=== PATIENT | female | born 1960 | race Caucasian/White ===

== ENCOUNTER 2018-11-15 14:34 | Inpatient (IN) | payer MEDICARE, MEDICAID ==
[2018-11-15 14:58] LABS: % BASOPHILS 4.9 % (0.0-2.0); % EOSINOPHILS 1.2 % (0.0-5.0); % LYMPHOCYTES 41.4 % (20.0-50.0); % MONOCYTES 6.5 % (2.0-10.0); BASOPHILE ABSOLUTE 0.3 Th/cumm (0-0.2); EOSINOPHILE ABSOLUTE 0.1 Th/cmm (0.1-0.4); HEMOGLOBIN 15.9 gm/dL (12-16); LYMPHOCYTE ABSOLUTE 2.3 Th/cmm (1.5-3.0); MEAN CELL VOLUME 95.9 fl (81-100); MEAN CORPUSCULAR HEMOGLOBIN 32.5 pg (27.0-31.0); MEAN CORPUSCULAR HGB CONC 33.9 pg (28.0-36.0); MONOCYTE ABSOLUTE 0.4 Th/cmm (0.3-1.0); NEUTROPHILE ABSOLUTE 2.4 Th/cmm (1.8-8.0); PLATELET COUNT 281 Th/cmm (150-400); WHITE BLOOD COUNT 5.5 Th/cmm (4.8-10.8)
[2018-11-15 15:15] LABS: ALB/GLOB RATIO 2.2 (1.0-1.8); ALBUMIN 4.4 gm/dL (3.7-5.3); ALKALINE PHOSPHATASE 40 U/L (34-104); ANION GAP 11.6 (7.0-16.0); BILIRUBIN,TOTAL 0.5 mg/dL (0.3-1.0); BUN - UREA NITROGEN 7 mg/dL (7-25); CALCIUM SERUM 9.6 mg/dL (8.6-10.3); CARBON DIOXIDE 25.9 mEq/L (21.0-31.0); CHLORIDE 105 mEq/L (98-107); CHOLESTEROL 194 mg/dL (<200); CREATININE - SERUM 0.7 mg/dL (0.6-1.2); GFR AFRICAN-AMERICAN > 60.0 ml/min (>90); GFR NON AFRICAN-AMERICAN > 60.0 ml/min; GLUCOSE 131 mg/dL (70-105); HDL -HIGH DENSITY LIPOPROTEIN 62 mg/dL (23-92); POTASSIUM SERUM 3.5 mEq/L (3.5-5.1); SGOT 15 U/L (13-39); SGPT/ALT 11 U/L (7-52); SODIUM SERUM 139 mEq/L (136-145); TOTAL PROTEIN,SERUM 6.4 gm/dL (6.0-8.3); TRIGLYCERIDES 90 mg/dL (<150)
[2018-11-15 15:19] LABS: ACETAMINOPHEN < 10.0 ug/mL (10.0-30.0)
--- NOTE | 2018-11-15 17:35 | ED Physician Chart ---
ED Chief Complaint/HPI - Patient Information Date Seen:: 11/15/18 Time Seen:: 14:35 Chief Complaint:: Hallucinations History of Present Illness:: onset x 2 days of hallucinations and delusions; no report of trauma, SIs, H/As, S/T, neck pain, cough, C/P, SOB, Abd. Pain, A/N/V/D/C, fever, chills, or urinary s/s Allergies:: Allergies Allergy/AdvReac Type Severity Reaction Status Date / Time No Known Allergies Allergy Verified 11/15/18 14:38 Vitals:: Vital Signs - 8 hr 11/15/18 14:38 Temp 98.8 F HR 109 RR 16 BP 117/85 O2 Sat % 98 Historian:: Patient, EMS Review:: Nurse's Note Reviewed, Old Chart Reviewed, EMS run form Reviewed ED Review of Systems - Review of Systems General/Constitutional: No fever, No chills, No weight loss, No weakness, No diaphoresis, No edema, No loss of appetite Skin: No skin lesions, No rash, No bruising Head: No headache, No light-headedness Eyes: No loss of vision, No pain, No diplopia ENT: No earache, No nasal drainage, No sore throat, No tinnitus Neck: No neck pain, No swelling, No thyromegaly, No stiffness, No mass noted Cardio Vascular: No chest pain, No palpitations, No PND, No orthopnea, No edema Pulmonary: No SOB, No cough, No sputum, No wheezing GI: No nausea, No vomiting, No diarrhea, No pain, No melena, No hematochezia, No constipation, No hematemesis G/U: No dysuria, No frequency, No hematuria, No nacturia Personal Security Specialist: No vaginal discharge, No abnormal vaginal bleed, No contraction Musculoskeletal: No bone or joint pain, No back pain, No muscle pain Endocrine: No polyuria, No polydipsia Psychiatric: Prior psych history, Depression, Anxiety, No suicidal ideation, No homicidal ideation, Auditory hallucination, Visual hallucination Hematopoietic: No bruising, No lymphadenopathy Allergic/Immuno: No urticaria, No angioedema Neurological: No syncope, No focal symptoms, No weakness, No paresthesia, No headache, No seizure, No dizziness, No confusion, No vertigo ED Past Medical History - Past Medical History Obtainable: Yes Past Medical History: PUD/GERD Family History: None Social History: Non Smoker, No Alcohol, No Drug Use, Single, Care Facility Surgical History: None Psychiatricy History: Depression, Schizophrenia, Bipolar Medication: Reviewed Family Medical History - Family Member Mother History Unknown: Yes ED Physical Exam - Physical Examination General/Constitutional: Awake, Well-developed, well-nourished, Alert, No distress, GCS 15, Non-toxic appearing, Ambulatory Head: Atraumatic Eyes: Lids, conjuctiva normal, PERRL, EOMI Skin: Nl inspection, No rash, No skin lesions, No ecchymosis, Well hydrated, No lymphadenopathy ENMT: External ears, nose nl, TM canals nl, Nasal exam nl, Lips, teeth, gums nl , Oropharynx nl, Tonsils nl Neck: Nontender, Full ROM w/o pain, No JVD, No nuchal rigidity, No bruit, No mass, No stridor Respiratory: Nl effort/Exclusion, Clear to Auscultation, No Wheeze/Rhonchi/Rales Cardio Vascular: RRR, No murmur, gallop, rubs, NL S1 S2, Carotid/Femoral/Distal pulses equal bilaterally GI: No tenderness/rebounding/guarding, No organomegaly, No hernia, Normal BS's, Nondistended, No mass/bruits, No McBurney tenderness : No CVA tenderness Extremities: No tenderness or effusion, Full ROM, normal strength in all extremities, No edema, Normal digits & nails Neuro/Psych: Alert/oriented, DTR's symmetric, Normal sensory exam, Normal motor strength, Judgement/insight normal, Mood normal, Normal gait, No focal deficits Other Neuro/Psych comments:: MSE: + Hallucinations and Delusions; no SIs; Mood/Affect: Blunt Misc: Normal back, No paraspinal tenderness ED Labs/Radiology/EKG Results - Lab Results Results: Laboratory Tests 11/15/18 11/15/18 11/15/18 14:46 14:46 14:46 WBC 5.5 RBC 4.90 Hgb 15.9 Hct 47.0 MCV 95.9 MCH 32.5 H MCHC Differential 33.9 RDW 12.0 Plt Count 281 MPV 8.1 Neutrophils % 46.0 Lymphocytes % 41.4 Monocytes % 6.5 Eosinophils % 1.2 Basophils % 4.9 H Sodium 139 Potassium 3.5 Chloride 105 Carbon Dioxide 25.9 Anion Gap 11.6 BUN 7 Creatinine 0.7 Est GFR ( Amer) > 60.0 Est GFR (Non-Af Amer) > 60.0 BUN/Creatinine Ratio 10.0 Glucose 131 H Calcium 9.6 Total Bilirubin 0.5 AST 15 ALT 11 Alkaline Phosphatase 40 Troponin I Total Protein 6.4 Albumin 4.4 Globulin 2.0 Albumin/Globulin Ratio 2.2 H Triglycerides 90 Cholesterol 194 LDL Cholesterol Direct 115 HDL Cholesterol 62 TSH 1.07 Serum , Qual Salicylates < 25.0 L Acetaminophen < 10.0 L Ethyl Alcohol < 10 11/15/18 11/15/18 14:46 14:46 WBC RBC Hgb Hct MCV MCH MCHC Differential RDW Plt Count MPV Neutrophils % Lymphocytes % Monocytes % Eosinophils % Basophils % Sodium Potassium Chloride Carbon Dioxide Anion Gap BUN Creatinine Est GFR ( Amer) Est GFR (Non-Af Amer) BUN/Creatinine Ratio Glucose Calcium Total Bilirubin AST ALT Alkaline Phosphatase Troponin I 0.01 Total Protein Albumin Globulin Albumin/Globulin Ratio Triglycerides Cholesterol LDL Cholesterol Direct HDL Cholesterol TSH Serum , Qual NEGATIVE Salicylates Acetaminophen Ethyl Alcohol Comments:: Reviewed - EKG Interpretations EKG Time:: 14:50 Rate & Rhythm: 90; NSR Comments:: non-specific st-t changes ED Septic Shock - . Is Septic Shock (SBP<90, OR Lactate>4 mmol\L) present?: No - <6hrs of presentation: Vital Signs: Vital Signs - 8 hr 11/15/18 14:38 Temp 98.8 F HR 109 RR 16 BP 117/85 O2 Sat % 98 ED Reassessment (Disposition) - Reassessment Reassessment Condition:: Improved - Diagnosis Diagnosis:: Hallucinations; Delusions; Medical Clearance; Psychosis; Schizophrenia - Aftercare/Follow up Instructions Aftercare/Follow-Up Instructions:: Counseled pt regarding lab results/diagnosis & need follow up, Counseled pt & family regarding lab results/diagnosis & need follow up - Patient Disposition Discharge/Transfer:: Acute Care w/in this hosp Admitted to:: [facility] Condition at Disposition:: Stable, Improved
[2018-11-15] MEDS ORDERED: Maalox 30 mL Cup PO PRN (18:30)
[2018-11-15] MEDS ORDERED: Magnesium Hydroxide (MOM) 30 mL UDC PO PRN ×2 (18:30→18:38)
[2018-11-15] MEDS ORDERED: Non-Formulary Item 1 EA (Acetaminophen [Acetaminophen Er] 650 MG) PO PRN (18:38)
[2018-11-15 20:04] VITALS: BP 102/45
[2018-11-16] MEDS: Multivitamin Tab PO SCH (09:00)
--- NOTE | 2018-11-16 10:30 | Psychiatric Evaluation ---
DATE OF SERVICE: 11/15/2018 PSYCHIATRIC EVALUATION Staff was spoken to. The patient is interviewed and chart is reviewed. REASON FOR ADMISSION AND HISTORY OF PRESENT ILLNESS: The patient is reported to have been actively psychotic and has been talking to self, not making any sense and getting acutely delusional and hence the patient could not be contained at a lower level of care and the patient has been referred over here for stabilization. Sleep and appetite prior to the hospitalization are reported to be poor. The patient is reporting that her doctor has taken her off of all the medications. There is no reason for her to be on any medication. PAST PSYCHIATRIC HISTORY: The patient is reported to have been diagnosed to have schizophrenia, chronic paranoid type and the patient is conserved. The patient's brother is a conservator. SUBSTANCE ABUSE HISTORY: None. PHYSICAL OR SEXUAL ABUSE HISTORY: None. LEGAL PROBLEMS: None at this time. SOCIAL HISTORY: The patient is a resident of the [facility] in [place]. PHYSICAL OR SEXUAL ABUSE HISTORY: None. MENTAL STATUS EXAMINATION: The patient is a 58-year-old woman looking her stated age, superficially cooperative. Eye contact is fair. Mood is irritable. Affect is constricted. The patient is operating on denial. The patient is stating that she is cured. She does not need to be on any medication and she states that her brother is a conservator and they have been waiting for her to come home. The patient is going on a tangent and is not able to provide much of information. The patient is very guarded and is denying any command hallucinations at this time, but contrary to what has been written at the time of the admission. The patient is alert and aware that she is in the hospital. Attention span and concentration are noted to be fair. The patient is of average intelligence. Short and long-term memory are noted to be intact. DIAGNOSTIC IMPRESSION: AXIS I: Schizophrenia, chronic paranoid type with acute exacerbation. AXIS II: None. AXIS III: As per Dr. Hernandez. IMMEDIATE TREATMENT PLAN: The patient is going to be observed on the inpatient unit, provided with supportive psychotherapy. The patient is going to be closely monitored. Once stabilized, the patient is going to be discharged to [facility] to be followed up on an outpatient basis. [facility]# [id number]
[2018-11-16] MEDS ORDERED: Ipratropium Neb 0.5 mg/2.5 mL UD IH PRN (12:04)
[2018-11-16] MEDS ORDERED: Albuterol Nebulizer 2.5mg/3mL HHN PRN (12:04)
--- NOTE | 2018-11-16 14:42 | History & Physical ---
ADMIT DATE: 11/15/2018 CHIEF COMPLAINT: Agitated, hallucinating. HISTORY OF PRESENT ILLNESS: This is a 58-year-old female with history of GERD, COPD, nicotine dependency, admitted from nursing facility with the above complaints ____. The patient denies chest pain, shortness of breath. PAST MEDICAL HISTORY: As mentioned in the history of present illness. PAST SURGICAL HISTORY: Denies surgeries. ALLERGIES: No known drug allergies. MEDICATIONS: The patient was placed on Colace, Tylenol, psychotropic medications and Zyprexa. FAMILY HISTORY: Noncontributory. SOCIAL HISTORY: Smokes a pack per day, drinks occasionally. No intravenous drug use. 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 REVIEW OF SYSTEMS: GENERAL: Complains of not feeling well. HEENT: No blurred vision or pain. LUNGS: Asthma. The patient with possible chronic obstructive pulmonary disease. HEART: Denies hypertension or coronary artery disease. ABDOMEN: No nausea, vomiting, pain. History of acid reflux. GENITOURINARY: The patient denies increased frequency or dysuria. NEUROLOGIC: No headache, seizure or syncope. PSYCHIATRIC: Stable. PHYSICAL EXAMINATION: VITAL SIGNS: Blood pressure 103/45, respirations 20, pulse 87, temperature 98.1. GENERAL: Elderly female, appears older. NECK: Supple. No mass. LUNGS: Equal breath sounds with few rhonchi. HEART: Regular rate and rhythm without appreciable murmur. ABDOMEN: Soft, globular. EXTREMITIES: Positive excoriation. NEUROLOGIC: Limited. LABORATORY DATA: WBC 5, hemoglobin 15, platelets 281. Sodium 139, potassium 3.5, BUN 7, creatinine 0.7, blood sugar 131. Albumin 4.4. ASSESSMENT AND PLAN: Hyperglycemia, COPD, GERD, psych disorder. We will provide the patient with bronchodilator and ____ blood sugar closely. We will provide the patient with a proton pump inhibitor. We will continue monitoring the patient closely with oscar, Dr. Dillon. JOB# [id number]
--- NOTE | 2018-11-16 22:44 | Consultation ---
DATE OF CONSULTATION: 11/16/2018 REFERRING PHYSICIAN: Laurence Posada MD TYPE OF CONSULTATION: Psychology. HISTORY OF PRESENT ILLNESS: The patient is a 58-year-old female. The patient is a resident of [facility]. The following is by record review and by the patient's self-report. According to record review, the patient has a long history of schizophrenia. Staff at her facility reports the patient had been talking to herself, not making much sense and could not be contained at a lower level of care. Therefore, the patient was sent here for stabilization. Upon interview, the patient states that she does not need to take any medication. Staff reports the patient had been refusing her medications recently. PAST MEDICAL HISTORY: Please see history and physical by Dr. Hernandez. PAST PSYCHIATRIC HISTORY: Review of the record indicates the patient has a history of schizophrenia, chronic paranoid type and is also conserved. The patient's brother is her conservator. The patient has had multiple previous psychiatric hospitalizations in the past. The patient is under the care of a psychiatrist and psychologist at her placement. PSYCHOSOCIAL HISTORY: The patient is conserved. The patient did not answer questions about occupational or educational history. The patient stated that her brother, Ronny, is involved in her care as well as her mother, Linda. The patient did not state any specific faith affiliation. The patient did not answer questions about experiencing any history of physical or sexual abuse or any current legal problems. SUBSTANCE ABUSE HISTORY: The patient denied any history of alcohol, tobacco or illicit drug use. MENTAL STATUS EXAMINATION: The patient appears to be her stated age. The patient's attitude is superficially cooperative. Eye contact is fair. Speech is pressured and she is talking to self.Mood is irritable. Affect is constricted. Thought process shows loose associations and is markedly tangential with poor cognitive redirectability. The patient is distractible. The patient denied any auditory or visual hallucinations. Paranoid ideation is present and needs further evaluation. The patient is stating that she does not need to take medication. Impulse control is poor. Concentration is fair. The patient was able to sustain focus. The patient participated in the memory assessment. Short term and long-term memory seemed to be grossly intact. Sensorium is alert and oriented to self and place. The patient is aware she is in the hospital. The patient did not participate in the interpretation of proverbs. Insight is poor. Judgment is compromised. DIAGNOSTIC IMPRESSION: AXIS I: History of schizophrenia, chronic paranoid type with acute exacerbation. AXIS II: Deferred. AXIS III: Per Dr. Hernandez. TREATMENT PLAN: The patient has been seen by Dr. Posada for psychiatric evaluation and for the management of the patient's psychotropic medications. We will provide supportive psychotherapy to include reality orientation, differentiation and integration. We will provide de-escalation with cognitive and behavioral redirection. We will provide coping strategies for chronic severe mental illness. We will provide motivational enhancement for the patient to become compliant and stay compliant with all aspects of her care and treatment and more specifically the patient's medication regimen. We will follow up in 2 days to continue the present treatment. Thank you, Dr. Posada for this consult and the opportunity to participate in this patient's care. [facility]# [id number] [email or web address]
--- NOTE | 2018-11-17 03:17 | Progress Notes ---
DATE: 11/16/2018 SUBJECTIVE: Staff was spoken to. The patient is interviewed. Mood is noted to be less irritable. Affect is appropriate. The patient has been having difficult time to cope with the stress and is stating that she should not be on any medications. The patient is stating that doctor has decided to take her off of all the medication. The patient is still very paranoid, but denies any command hallucinations today. ASSESSMENT: The patient is still psychotic. PLAN: To continue the patient with the supportive therapy and followup. JOB# [id number]
[2018-11-17 07:06] LABS: A1C 5.3 % (4.8-5.6)
[2018-11-17] MEDS: Multivitamin Tab PO SCH (08:20)
--- NOTE | 2018-11-17 12:43 | Progress Notes ---
DATE: 11/17/2018 SUBJECTIVE: Staff was spoken to. The patient is interviewed. Mood is noted to be irritable. Affect is constricted. The patient is stating that she is cured off all the mental illness and her doctor has taken her off of the medication. She should not be on any medications. The patient has not been presenting with any major problems at this time, but continues to be responding to internal stimuli and very paranoid. PLAN: To increase the dose on the Zyprexa to 5 mg and follow the patient up. JOB# [id number]
--- NOTE | 2018-11-17 13:07 | Internal Medicine Prog Note ---
Internal Medicine Subjective - Subjective Patient seen and examined:: with staff, chart reviewed Patient is:: awake, verbal, interactive, talking, denies any new complaints Per staff patient has:: no adverse event, no episodes of fall, poor appetite, tolerating meds Internal Medicine Objective - Results Result Diagrams: 11/15/18 14:46 11/15/18 14:46 Recent Labs: Laboratory Last Values WBC 5.5 Th/cmm (4.8-10.8) 11/15/18 14:46 RBC 4.90 Mil/cmm (3.80-5.10) 11/15/18 14:46 Hgb 15.9 gm/dL (12-16) 11/15/18 14:46 Hct 47.0 % (41.0-60) 11/15/18 14:46 MCV 95.9 fl (81-100) 11/15/18 14:46 MCH 32.5 pg (27.0-31.0) H 11/15/18 14:46 MCHC Differential 33.9 pg (28.0-36.0) 11/15/18 14:46 RDW 12.0 % (11.5-20.0) 11/15/18 14:46 Plt Count 281 Th/cmm (150-400) 11/15/18 14:46 MPV 8.1 fl 11/15/18 14:46 Neutrophils % 46.0 % (40.0-80.0) 11/15/18 14:46 Lymphocytes % 41.4 % (20.0-50.0) 11/15/18 14:46 Monocytes % 6.5 % (2.0-10.0) 11/15/18 14:46 Eosinophils % 1.2 % (0.0-5.0) 11/15/18 14:46 Basophils % 4.9 % (0.0-2.0) H 11/15/18 14:46 Sodium 139 mEq/L (136-145) 11/15/18 14:46 Potassium 3.5 mEq/L (3.5-5.1) 11/15/18 14:46 Chloride 105 mEq/L (98-107) 11/15/18 14:46 Carbon Dioxide 25.9 mEq/L (21.0-31.0) 11/15/18 14:46 Anion Gap 11.6 (7.0-16.0) 11/15/18 14:46 BUN 7 mg/dL (7-25) 11/15/18 14:46 Creatinine 0.7 mg/dL (0.6-1.2) 11/15/18 14:46 Est GFR ( Amer) > 60.0 ml/min (>90) 11/15/18 14:46 Est GFR (Non-Af Amer) > 60.0 ml/min 11/15/18 14:46 BUN/Creatinine Ratio 10.0 11/15/18 14:46 Glucose 131 mg/dL (70-105) H 11/15/18 14:46 Calcium 9.6 mg/dL (8.6-10.3) 11/15/18 14:46 Total Bilirubin 0.5 mg/dL (0.3-1.0) 11/15/18 14:46 AST 15 U/L (13-39) 11/15/18 14:46 ALT 11 U/L (7-52) 11/15/18 14:46 Alkaline Phosphatase 40 U/L (34-104) 11/15/18 14:46 Troponin I 0.01 ng/mL (0.01-0.05) 11/15/18 14:46 Total Protein 6.4 gm/dL (6.0-8.3) 11/15/18 14:46 Albumin 4.4 gm/dL (3.7-5.3) 11/15/18 14:46 Globulin 2.0 gm/dL 11/15/18 14:46 Albumin/Globulin Ratio 2.2 (1.0-1.8) H 11/15/18 14:46 Triglycerides 90 mg/dL (<150) 11/15/18 14:46 Cholesterol 194 mg/dL (<200) 11/15/18 14:46 LDL Cholesterol Direct 115 mg/dL (75-193) 11/15/18 14:46 HDL Cholesterol 62 mg/dL (23-92) 11/15/18 14:46 TSH 1.07 uIU/ml (0.34-5.60) 11/15/18 14:46 Serum , Qual NEGATIVE (NEGATIVE) 11/15/18 14:46 Salicylates < 25.0 mg/L (30.0-100.0) L 11/15/18 14:46 Acetaminophen < 10.0 ug/mL (10.0-30.0) L 11/15/18 14:46 Ethyl Alcohol < 10 mg/dL (0-10) 11/15/18 14:46 - Physical Exam Vitals and I&O: Vital Signs Temp 98.6 F 11/17/18 06:24 Pulse 70 11/17/18 07:27 Resp 18 11/17/18 07:27 BP 108/66 11/17/18 06:24 Pulse Ox 97 11/17/18 07:27 Intake & Output 11/16/18 11/17/18 11/17/18 18:59 06:59 18:59 Intake Total 1100 240 Balance 1100 240 Intake: Oral 740 240 Other 360 Other: # Voids 3 3 # Bowel Movements 0 0 Active Medications: Current Medications Acetaminophen (Tylenol) 650 mg PO Q4HR PRN PRN Reason: Mild Pain / Temp above 100 Stop: 01/14/19 18:29 Al Hydrox/Mg Hydrox/Simethicone (Maalox) 30 ml PO Q4HR PRN PRN Reason: GI DISTRESS Stop: 01/14/19 18:29 Albuterol Sulfate (Albuterol 2.5mg/3ml Neb Ud) 2.5 mg HHN Q2HRT PRN PRN Reason: Shortness of Breath or Wheeze Stop: 01/15/19 12:03 Docusate Sodium (Colace) 100 mg PO BID ASH Stop: 01/15/19 08:59 Last Admin: 11/17/18 08:20 Dose: 100 mg Ipratropium [place] (Atrovent Neb 0.5mg/2.5ml) 0.5 mg IH Q2HRT PRN PRN Reason: Shortness of Breath or Wheeze Stop: 01/15/19 12:03 Lorazepam (Ativan) 0.5 mg PO Q6HR PRN; Protocol PRN Reason: Anxiety Stop: 01/14/19 19:31 Last Admin: 11/16/18 16:48 Dose: 0.5 mg Magnesium Hydroxide (Milk Of Magnesia) 30 ml PO HS PRN PRN Reason: Constipation Magnesium Hydroxide (Milk Of Magnesia) 30 ml PO DAILY PRN PRN Reason: Constipation Stop: 01/14/19 18:37 Multivitamins/Vitamin C (Theragran) 1 tab PO DAILY ASH Stop: 01/15/19 08:59 Last Admin: 11/17/18 08:20 Dose: 1 tab Olanzapine (Zyprexa) 5 mg PO HS ASH; Protocol Stop: 01/16/19 20:59 Zolpidem Tartrate (Ambien) 5 mg PO HS PRN PRN Reason: Insomnia Stop: 01/14/19 18:29 Last Admin: 11/16/18 20:36 Dose: 5 mg General: alert, thin HEENT: NC/AT, PERRLA, EOMI Neck: Supple, No JVD Lungs: CTAB Cardiovascular: RRR, Normal S1, Normal S2, without murmur Abdomen: soft, non-tender, thin, positive bowel sound Extremities: excoriation Neurological: no change Internal Medicine Assmt/Plan - Assessment Assessment: ASSESSMENT AND PLAN: Hyperglycemia, COPD, GERD, psych disorder. - Plan Plan: PLAN: We will provide the patient with bronchodilator and _monitor___ blood sugar closely. We will provide the patient with a proton pump inhibitor. We will continue monitoring the patient closely with Dr. Santana moore.
[2018-11-18] MEDS: Multivitamin Tab PO SCH (08:35)
--- NOTE | 2018-11-18 13:27 | Internal Medicine Prog Note ---
Internal Medicine Subjective - Subjective Patient seen and examined:: with staff, chart reviewed Patient is:: awake, verbal, interactive, talking, denies any new complaints Per staff patient has:: no adverse event, no episodes of fall, poor appetite, tolerating meds Internal Medicine Objective - Results Result Diagrams: 11/15/18 14:46 11/15/18 14:46 Recent Labs: Laboratory Last Values WBC 5.5 Th/cmm (4.8-10.8) 11/15/18 14:46 RBC 4.90 Mil/cmm (3.80-5.10) 11/15/18 14:46 Hgb 15.9 gm/dL (12-16) 11/15/18 14:46 Hct 47.0 % (41.0-60) 11/15/18 14:46 MCV 95.9 fl (81-100) 11/15/18 14:46 MCH 32.5 pg (27.0-31.0) H 11/15/18 14:46 MCHC Differential 33.9 pg (28.0-36.0) 11/15/18 14:46 RDW 12.0 % (11.5-20.0) 11/15/18 14:46 Plt Count 281 Th/cmm (150-400) 11/15/18 14:46 MPV 8.1 fl 11/15/18 14:46 Neutrophils % 46.0 % (40.0-80.0) 11/15/18 14:46 Lymphocytes % 41.4 % (20.0-50.0) 11/15/18 14:46 Monocytes % 6.5 % (2.0-10.0) 11/15/18 14:46 Eosinophils % 1.2 % (0.0-5.0) 11/15/18 14:46 Basophils % 4.9 % (0.0-2.0) H 11/15/18 14:46 Sodium 139 mEq/L (136-145) 11/15/18 14:46 Potassium 3.5 mEq/L (3.5-5.1) 11/15/18 14:46 Chloride 105 mEq/L (98-107) 11/15/18 14:46 Carbon Dioxide 25.9 mEq/L (21.0-31.0) 11/15/18 14:46 Anion Gap 11.6 (7.0-16.0) 11/15/18 14:46 BUN 7 mg/dL (7-25) 11/15/18 14:46 Creatinine 0.7 mg/dL (0.6-1.2) 11/15/18 14:46 Est GFR ( Amer) > 60.0 ml/min (>90) 11/15/18 14:46 Est GFR (Non-Af Amer) > 60.0 ml/min 11/15/18 14:46 BUN/Creatinine Ratio 10.0 11/15/18 14:46 Glucose 131 mg/dL (70-105) H 11/15/18 14:46 Calcium 9.6 mg/dL (8.6-10.3) 11/15/18 14:46 Total Bilirubin 0.5 mg/dL (0.3-1.0) 11/15/18 14:46 AST 15 U/L (13-39) 11/15/18 14:46 ALT 11 U/L (7-52) 11/15/18 14:46 Alkaline Phosphatase 40 U/L (34-104) 11/15/18 14:46 Troponin I 0.01 ng/mL (0.01-0.05) 11/15/18 14:46 Total Protein 6.4 gm/dL (6.0-8.3) 11/15/18 14:46 Albumin 4.4 gm/dL (3.7-5.3) 11/15/18 14:46 Globulin 2.0 gm/dL 11/15/18 14:46 Albumin/Globulin Ratio 2.2 (1.0-1.8) H 11/15/18 14:46 Triglycerides 90 mg/dL (<150) 11/15/18 14:46 Cholesterol 194 mg/dL (<200) 11/15/18 14:46 LDL Cholesterol Direct 115 mg/dL (75-193) 11/15/18 14:46 HDL Cholesterol 62 mg/dL (23-92) 11/15/18 14:46 TSH 1.07 uIU/ml (0.34-5.60) 11/15/18 14:46 Serum , Qual NEGATIVE (NEGATIVE) 11/15/18 14:46 Salicylates < 25.0 mg/L (30.0-100.0) L 11/15/18 14:46 Acetaminophen < 10.0 ug/mL (10.0-30.0) L 11/15/18 14:46 Ethyl Alcohol < 10 mg/dL (0-10) 11/15/18 14:46 - Physical Exam Vitals and I&O: Vital Signs Temp 98.1 F 11/18/18 06:33 Pulse 60 11/18/18 07:50 Resp 18 11/18/18 07:50 BP 124/74 11/18/18 06:33 Pulse Ox 98 11/18/18 07:50 Intake & Output 11/17/18 11/18/18 11/18/18 18:59 06:59 18:59 Intake Total 1100 360 Balance 1100 360 Intake: Oral 740 360 Other 360 Other: # Voids 3 2 # Bowel Movements 1 0 Active Medications: Current Medications Acetaminophen (Tylenol) 650 mg PO Q4HR PRN PRN Reason: Mild Pain / Temp above 100 Stop: 01/14/19 18:29 Al Hydrox/Mg Hydrox/Simethicone (Maalox) 30 ml PO Q4HR PRN PRN Reason: GI DISTRESS Stop: 01/14/19 18:29 Albuterol Sulfate (Albuterol 2.5mg/3ml Neb Ud) 2.5 mg HHN Q2HRT PRN PRN Reason: Shortness of Breath or Wheeze Stop: 01/15/19 12:03 Docusate Sodium (Colace) 100 mg PO BID ASH Stop: 01/15/19 08:59 Last Admin: 11/18/18 08:35 Dose: 100 mg Ipratropium [place] (Atrovent Neb 0.5mg/2.5ml) 0.5 mg IH Q2HRT PRN PRN Reason: Shortness of Breath or Wheeze Stop: 01/15/19 12:03 Lorazepam (Ativan) 0.5 mg PO Q6HR PRN; Protocol PRN Reason: Anxiety Stop: 01/14/19 19:31 Last Admin: 11/16/18 16:48 Dose: 0.5 mg Magnesium Hydroxide (Milk Of Magnesia) 30 ml PO HS PRN PRN Reason: Constipation Magnesium Hydroxide (Milk Of Magnesia) 30 ml PO DAILY PRN PRN Reason: Constipation Stop: 01/14/19 18:37 Multivitamins/Vitamin C (Theragran) 1 tab PO DAILY ASH Stop: 01/15/19 08:59 Last Admin: 11/18/18 08:35 Dose: 1 tab Olanzapine (Zyprexa) 7.5 mg PO HS ASH; Protocol Stop: 01/17/19 20:59 Zolpidem Tartrate (Ambien) 5 mg PO HS PRN PRN Reason: Insomnia Stop: 01/14/19 18:29 Last Admin: 11/16/18 20:36 Dose: 5 mg General: alert, thin HEENT: NC/AT, PERRLA, EOMI Neck: Supple, No JVD Lungs: CTAB Cardiovascular: RRR, Normal S1, Normal S2, without murmur Abdomen: soft, non-tender, thin, positive bowel sound Extremities: excoriation Neurological: no change Internal Medicine Assmt/Plan - Assessment Assessment: ASSESSMENT AND PLAN: Hyperglycemia, COPD, GERD, psych disorder. - Plan Plan: PLAN: We will provide the patient with bronchodilator and _monitor___ blood sugar closely. We will provide the patient with a proton pump inhibitor. We will continue monitoring the patient closely with Dr. Santana moore.
--- NOTE | 2018-11-18 20:27 | Progress Notes ---
DATE: 11/18/2018 SUBJECTIVE: The patient was seen, remains anxious, restless, still guarded, still paranoid, irritable, minimizing the seriousness of her problems. The patient has taken her medications. Her appetite and sleep are fair. MENTAL STATUS EXAM: Speech is fluent, not pressured, somewhat guarded. The patient remains paranoid, suspicious. She is oriented x 3. PLAN: We will increase Zyprexa to 7.5 mg p.o. at bedtime. Continue supportive measures. Continue stabilization. Continue to work on paranoia. JOB# [id number]
[2018-11-19] MEDS: Multivitamin Tab PO SCH (08:45)
--- NOTE | 2018-11-19 08:52 | Internal Medicine Prog Note ---
Internal Medicine Subjective - Subjective Patient seen and examined:: with staff, chart reviewed Patient is:: awake, verbal, interactive, talking, denies any new complaints Per staff patient has:: no adverse event, no episodes of fall, poor appetite, tolerating meds Internal Medicine Objective - Results Result Diagrams: 11/15/18 14:46 11/15/18 14:46 Recent Labs: Laboratory Last Values WBC 5.5 Th/cmm (4.8-10.8) 11/15/18 14:46 RBC 4.90 Mil/cmm (3.80-5.10) 11/15/18 14:46 Hgb 15.9 gm/dL (12-16) 11/15/18 14:46 Hct 47.0 % (41.0-60) 11/15/18 14:46 MCV 95.9 fl (81-100) 11/15/18 14:46 MCH 32.5 pg (27.0-31.0) H 11/15/18 14:46 MCHC Differential 33.9 pg (28.0-36.0) 11/15/18 14:46 RDW 12.0 % (11.5-20.0) 11/15/18 14:46 Plt Count 281 Th/cmm (150-400) 11/15/18 14:46 MPV 8.1 fl 11/15/18 14:46 Neutrophils % 46.0 % (40.0-80.0) 11/15/18 14:46 Lymphocytes % 41.4 % (20.0-50.0) 11/15/18 14:46 Monocytes % 6.5 % (2.0-10.0) 11/15/18 14:46 Eosinophils % 1.2 % (0.0-5.0) 11/15/18 14:46 Basophils % 4.9 % (0.0-2.0) H 11/15/18 14:46 Sodium 139 mEq/L (136-145) 11/15/18 14:46 Potassium 3.5 mEq/L (3.5-5.1) 11/15/18 14:46 Chloride 105 mEq/L (98-107) 11/15/18 14:46 Carbon Dioxide 25.9 mEq/L (21.0-31.0) 11/15/18 14:46 Anion Gap 11.6 (7.0-16.0) 11/15/18 14:46 BUN 7 mg/dL (7-25) 11/15/18 14:46 Creatinine 0.7 mg/dL (0.6-1.2) 11/15/18 14:46 Est GFR ( Amer) > 60.0 ml/min (>90) 11/15/18 14:46 Est GFR (Non-Af Amer) > 60.0 ml/min 11/15/18 14:46 BUN/Creatinine Ratio 10.0 11/15/18 14:46 Glucose 131 mg/dL (70-105) H 11/15/18 14:46 Calcium 9.6 mg/dL (8.6-10.3) 11/15/18 14:46 Total Bilirubin 0.5 mg/dL (0.3-1.0) 11/15/18 14:46 AST 15 U/L (13-39) 11/15/18 14:46 ALT 11 U/L (7-52) 11/15/18 14:46 Alkaline Phosphatase 40 U/L (34-104) 11/15/18 14:46 Troponin I 0.01 ng/mL (0.01-0.05) 11/15/18 14:46 Total Protein 6.4 gm/dL (6.0-8.3) 11/15/18 14:46 Albumin 4.4 gm/dL (3.7-5.3) 11/15/18 14:46 Globulin 2.0 gm/dL 11/15/18 14:46 Albumin/Globulin Ratio 2.2 (1.0-1.8) H 11/15/18 14:46 Triglycerides 90 mg/dL (<150) 11/15/18 14:46 Cholesterol 194 mg/dL (<200) 11/15/18 14:46 LDL Cholesterol Direct 115 mg/dL (75-193) 11/15/18 14:46 HDL Cholesterol 62 mg/dL (23-92) 11/15/18 14:46 TSH 1.07 uIU/ml (0.34-5.60) 11/15/18 14:46 Serum , Qual NEGATIVE (NEGATIVE) 11/15/18 14:46 Salicylates < 25.0 mg/L (30.0-100.0) L 11/15/18 14:46 Acetaminophen < 10.0 ug/mL (10.0-30.0) L 11/15/18 14:46 Ethyl Alcohol < 10 mg/dL (0-10) 11/15/18 14:46 - Physical Exam Vitals and I&O: Vital Signs Temp 97.5 F 11/19/18 06:31 Pulse 53 11/19/18 06:31 Resp 20 11/19/18 06:31 BP 112/45 11/19/18 06:31 Pulse Ox 99 11/19/18 06:31 Intake & Output 11/18/18 11/19/18 11/19/18 18:59 06:59 18:59 Intake Total 1000 720 Balance 1000 720 Intake: Oral 1000 720 Other: # Voids 4 3 # Bowel Movements 1 0 Active Medications: Current Medications Acetaminophen (Tylenol) 650 mg PO Q4HR PRN PRN Reason: Mild Pain / Temp above 100 Stop: 01/14/19 18:29 Al Hydrox/Mg Hydrox/Simethicone (Maalox) 30 ml PO Q4HR PRN PRN Reason: GI DISTRESS Stop: 01/14/19 18:29 Albuterol Sulfate (Albuterol 2.5mg/3ml Neb Ud) 2.5 mg HHN Q2HRT PRN PRN Reason: Shortness of Breath or Wheeze Stop: 01/15/19 12:03 Docusate Sodium (Colace) 100 mg PO BID ASH Stop: 01/15/19 08:59 Last Admin: 11/19/18 08:45 Dose: 100 mg Ipratropium [place] (Atrovent Neb 0.5mg/2.5ml) 0.5 mg IH Q2HRT PRN PRN Reason: Shortness of Breath or Wheeze Stop: 01/15/19 12:03 Lorazepam (Ativan) 0.5 mg PO Q6HR PRN; Protocol PRN Reason: Anxiety Stop: 01/14/19 19:31 Last Admin: 11/16/18 16:48 Dose: 0.5 mg Magnesium Hydroxide (Milk Of Magnesia) 30 ml PO HS PRN PRN Reason: Constipation Magnesium Hydroxide (Milk Of Magnesia) 30 ml PO DAILY PRN PRN Reason: Constipation Stop: 01/14/19 18:37 Multivitamins/Vitamin C (Theragran) 1 tab PO DAILY ASH Stop: 01/15/19 08:59 Last Admin: 11/19/18 08:45 Dose: 1 tab Olanzapine (Zyprexa) 7.5 mg PO HS ASH; Protocol Stop: 01/17/19 20:59 Last Admin: 11/18/18 20:49 Dose: 7.5 mg Zolpidem Tartrate (Ambien) 5 mg PO HS PRN PRN Reason: Insomnia Stop: 01/14/19 18:29 Last Admin: 11/16/18 20:36 Dose: 5 mg General: alert, thin HEENT: NC/AT, PERRLA, EOMI Neck: Supple, No JVD Lungs: CTAB Cardiovascular: RRR, Normal S1, Normal S2, without murmur Abdomen: soft, non-tender, thin, positive bowel sound Extremities: excoriation Neurological: no change Internal Medicine Assmt/Plan - Assessment Assessment: ASSESSMENT AND PLAN: Hyperglycemia, COPD, GERD, psych disorder. - Plan Plan: PLAN: We will provide the patient with bronchodilator and _monitor___ blood sugar closely. We will provide the patient with a proton pump inhibitor. We will continue monitoring the patient closely with Dr. Santana moore.
--- NOTE | 2018-11-19 11:18 | Progress Notes ---
DATE: 11/18/2018 PSYCHOLOGY PROGRESS NOTE. SUBJECTIVE: The patient is seen and is interviewed. Case is discussed with staff. The patient presents as anxious and somewhat guarded. Staff reports the patient is restless and irritable. The patient is taking her p.o. medications. The patient states that she needs to go home. OBJECTIVE: Mood is anxious and irritable. Affect is constricted. Thought process includes paranoid ideation. The patient is guarded and suspicious. The patient denied any hallucinations or delusions. The patient is taking her p.o. medications; however, the patient's behavior continues to be difficult to redirect. ASSESSMENT AND PLAN: The attending psychiatrist increased the patient's Zyprexa to 7.5 mg p.o. at bedtime. We continued supportive measures to include reality orientation and integration. We provided cognitive and behavioral redirection for the patient to become more redirectable. We provided coping strategies for phase of life issues as well as for chronic severe mental illness. We provided reality testing to include reality differentiation for the patient to focus on reality based thoughts versus delusional thought to reduce her paranoia. We encouraged the patient to demonstrate emotional and self-regulation by verbalizing her concerns versus acting out. We will follow up in 2 days to continue the present treatment if the patient remains admitted on the unit. JOB# [id number] BESSIE
--- NOTE | 2018-11-19 20:53 | Progress Notes ---
DATE: 11/19/2018 SUBJECTIVE: The patient was seen, remains isolative, guarded, keeping to herself. States she is fine. Denies feeling depressed. The patient is taking her medications. The patient continues to have some irritability, some anger outbursts. Her Zyprexa was increased and so far, she has no side effects. ASSESSMENT: The patient still in psychotic phase, but slowly started to improve. PLAN: Continue hospitalization. Increase Zyprexa to 10 mg p.o. at bedtime. Continue to monitor closely. [facility]# [id number]
[2018-11-20] MEDS: Multivitamin Tab PO SCH (09:36)
--- NOTE | 2018-11-20 11:35 | Internal Medicine Prog Note ---
Internal Medicine Subjective - Subjective Patient seen and examined:: with staff, chart reviewed Patient is:: awake, verbal, interactive, talking, denies any new complaints Per staff patient has:: no adverse event, no episodes of fall, poor appetite, tolerating meds Internal Medicine Objective - Results Result Diagrams: 11/15/18 14:46 11/15/18 14:46 Recent Labs: Laboratory Last Values WBC 5.5 Th/cmm (4.8-10.8) 11/15/18 14:46 RBC 4.90 Mil/cmm (3.80-5.10) 11/15/18 14:46 Hgb 15.9 gm/dL (12-16) 11/15/18 14:46 Hct 47.0 % (41.0-60) 11/15/18 14:46 MCV 95.9 fl (81-100) 11/15/18 14:46 MCH 32.5 pg (27.0-31.0) H 11/15/18 14:46 MCHC Differential 33.9 pg (28.0-36.0) 11/15/18 14:46 RDW 12.0 % (11.5-20.0) 11/15/18 14:46 Plt Count 281 Th/cmm (150-400) 11/15/18 14:46 MPV 8.1 fl 11/15/18 14:46 Neutrophils % 46.0 % (40.0-80.0) 11/15/18 14:46 Lymphocytes % 41.4 % (20.0-50.0) 11/15/18 14:46 Monocytes % 6.5 % (2.0-10.0) 11/15/18 14:46 Eosinophils % 1.2 % (0.0-5.0) 11/15/18 14:46 Basophils % 4.9 % (0.0-2.0) H 11/15/18 14:46 Sodium 139 mEq/L (136-145) 11/15/18 14:46 Potassium 3.5 mEq/L (3.5-5.1) 11/15/18 14:46 Chloride 105 mEq/L (98-107) 11/15/18 14:46 Carbon Dioxide 25.9 mEq/L (21.0-31.0) 11/15/18 14:46 Anion Gap 11.6 (7.0-16.0) 11/15/18 14:46 BUN 7 mg/dL (7-25) 11/15/18 14:46 Creatinine 0.7 mg/dL (0.6-1.2) 11/15/18 14:46 Est GFR ( Amer) > 60.0 ml/min (>90) 11/15/18 14:46 Est GFR (Non-Af Amer) > 60.0 ml/min 11/15/18 14:46 BUN/Creatinine Ratio 10.0 11/15/18 14:46 Glucose 131 mg/dL (70-105) H 11/15/18 14:46 Calcium 9.6 mg/dL (8.6-10.3) 11/15/18 14:46 Total Bilirubin 0.5 mg/dL (0.3-1.0) 11/15/18 14:46 AST 15 U/L (13-39) 11/15/18 14:46 ALT 11 U/L (7-52) 11/15/18 14:46 Alkaline Phosphatase 40 U/L (34-104) 11/15/18 14:46 Troponin I 0.01 ng/mL (0.01-0.05) 11/15/18 14:46 Total Protein 6.4 gm/dL (6.0-8.3) 11/15/18 14:46 Albumin 4.4 gm/dL (3.7-5.3) 11/15/18 14:46 Globulin 2.0 gm/dL 11/15/18 14:46 Albumin/Globulin Ratio 2.2 (1.0-1.8) H 11/15/18 14:46 Triglycerides 90 mg/dL (<150) 11/15/18 14:46 Cholesterol 194 mg/dL (<200) 11/15/18 14:46 LDL Cholesterol Direct 115 mg/dL (75-193) 11/15/18 14:46 HDL Cholesterol 62 mg/dL (23-92) 11/15/18 14:46 TSH 1.07 uIU/ml (0.34-5.60) 11/15/18 14:46 Serum , Qual NEGATIVE (NEGATIVE) 11/15/18 14:46 Salicylates < 25.0 mg/L (30.0-100.0) L 11/15/18 14:46 Acetaminophen < 10.0 ug/mL (10.0-30.0) L 11/15/18 14:46 Ethyl Alcohol < 10 mg/dL (0-10) 11/15/18 14:46 RPR NONREACTIVE (NONREACTIVE) 11/15/18 14:46 - Physical Exam Vitals and I&O: Vital Signs Temp 98.2 F 11/20/18 06:26 Pulse 64 11/20/18 07:23 Resp 12 11/20/18 07:23 BP 91/57 11/20/18 06:26 Pulse Ox 95 11/20/18 07:23 Intake & Output 11/19/18 11/20/18 11/20/18 18:59 06:59 18:59 Intake Total 240 Balance 240 Intake: Oral 240 Other: # Voids 2 # Bowel Movements 0 Active Medications: Current Medications Acetaminophen (Tylenol) 650 mg PO Q4HR PRN PRN Reason: Mild Pain / Temp above 100 Stop: 01/14/19 18:29 Al Hydrox/Mg Hydrox/Simethicone (Maalox) 30 ml PO Q4HR PRN PRN Reason: GI DISTRESS Stop: 01/14/19 18:29 Albuterol Sulfate (Albuterol 2.5mg/3ml Neb Ud) 2.5 mg HHN Q2HRT PRN PRN Reason: Shortness of Breath or Wheeze Stop: 01/15/19 12:03 Docusate Sodium (Colace) 100 mg PO BID ASH Stop: 01/15/19 08:59 Last Admin: 11/20/18 09:36 Dose: 100 mg Ipratropium [place] (Atrovent Neb 0.5mg/2.5ml) 0.5 mg IH Q2HRT PRN PRN Reason: Shortness of Breath or Wheeze Stop: 01/15/19 12:03 Lorazepam (Ativan) 0.5 mg PO Q6HR PRN; Protocol PRN Reason: Anxiety Stop: 01/14/19 19:31 Last Admin: 11/19/18 23:56 Dose: 0.5 mg Magnesium Hydroxide (Milk Of Magnesia) 30 ml PO HS PRN PRN Reason: Constipation Magnesium Hydroxide (Milk Of Magnesia) 30 ml PO DAILY PRN PRN Reason: Constipation Stop: 01/14/19 18:37 Multivitamins/Vitamin C (Theragran) 1 tab PO DAILY ASH Stop: 01/15/19 08:59 Last Admin: 11/20/18 09:36 Dose: 1 tab Olanzapine (Zyprexa) 10 mg PO HS ASH; Protocol Stop: 01/18/19 20:59 Last Admin: 11/19/18 20:42 Dose: 10 mg Zolpidem Tartrate (Ambien) 5 mg PO HS PRN PRN Reason: Insomnia Stop: 01/14/19 18:29 Last Admin: 11/19/18 20:42 Dose: 5 mg General: alert, thin HEENT: NC/AT, PERRLA, EOMI Neck: Supple, No JVD Lungs: CTAB Cardiovascular: RRR, Normal S1, Normal S2, without murmur Abdomen: soft, non-tender, thin, positive bowel sound Extremities: excoriation Neurological: no change Internal Medicine Assmt/Plan - Assessment Assessment: ASSESSMENT AND PLAN: Hyperglycemia, COPD, GERD, psych disorder. - Plan Plan: PLAN: We will provide the patient with bronchodilator and _monitor___ blood sugar closely. We will provide the patient with a proton pump inhibitor. We will continue monitoring the patient closely with oscar, Dr. Dillon.
--- NOTE | 2018-11-20 21:56 | Progress Notes ---
DATE: 11/20/2018 SUBJECTIVE: The patient was seen, chart reviewed, discussed with staff. Still having some anger outburst, episodes of irritability, but she is taking her medications and her sleep has improved. Her appetite is fair. MENTAL STATUS EXAMINATION: Speech fluent, not pressured, short sentences. Affect is guarded, anxious. The patient still with intermittent paranoia. The patient is oriented to person being in the hospital. PLAN: We will continue hospitalization. Continue stabilization. Zyprexa was increased to 10 mg p.o. at bedtime. JOB# [id number]
[2018-11-21] MEDS: Multivitamin Tab PO SCH (09:02)
--- NOTE | 2018-11-21 12:38 | Progress Notes ---
DATE: 11/21/2018 The patient was seen, discussed with staff, less anxious. Denies feeling depressed. The patient is taking her medication. Reports fair sleep at night. The patient is more visible on unit, going to groups. ASSESSMENT: The patient is less paranoid and displaying less psychosis. She is gradually improving. PLAN: Continue hospitalization, stabilization. Continue Zyprexa at 10 mg p.o. at bedtime. Estimated length of stay 2-4 days. [facility]# [id number]
--- NOTE | 2018-11-21 13:14 | Internal Medicine Prog Note ---
Internal Medicine Subjective - Subjective Patient seen and examined:: with staff, chart reviewed Patient is:: awake, verbal, interactive, talking, denies any new complaints Per staff patient has:: no adverse event, no episodes of fall, poor appetite, tolerating meds Internal Medicine Objective - Results Result Diagrams: 11/15/18 14:46 11/15/18 14:46 Recent Labs: Laboratory Last Values WBC 5.5 Th/cmm (4.8-10.8) 11/15/18 14:46 RBC 4.90 Mil/cmm (3.80-5.10) 11/15/18 14:46 Hgb 15.9 gm/dL (12-16) 11/15/18 14:46 Hct 47.0 % (41.0-60) 11/15/18 14:46 MCV 95.9 fl (81-100) 11/15/18 14:46 MCH 32.5 pg (27.0-31.0) H 11/15/18 14:46 MCHC Differential 33.9 pg (28.0-36.0) 11/15/18 14:46 RDW 12.0 % (11.5-20.0) 11/15/18 14:46 Plt Count 281 Th/cmm (150-400) 11/15/18 14:46 MPV 8.1 fl 11/15/18 14:46 Neutrophils % 46.0 % (40.0-80.0) 11/15/18 14:46 Lymphocytes % 41.4 % (20.0-50.0) 11/15/18 14:46 Monocytes % 6.5 % (2.0-10.0) 11/15/18 14:46 Eosinophils % 1.2 % (0.0-5.0) 11/15/18 14:46 Basophils % 4.9 % (0.0-2.0) H 11/15/18 14:46 Sodium 139 mEq/L (136-145) 11/15/18 14:46 Potassium 3.5 mEq/L (3.5-5.1) 11/15/18 14:46 Chloride 105 mEq/L (98-107) 11/15/18 14:46 Carbon Dioxide 25.9 mEq/L (21.0-31.0) 11/15/18 14:46 Anion Gap 11.6 (7.0-16.0) 11/15/18 14:46 BUN 7 mg/dL (7-25) 11/15/18 14:46 Creatinine 0.7 mg/dL (0.6-1.2) 11/15/18 14:46 Est GFR ( Amer) > 60.0 ml/min (>90) 11/15/18 14:46 Est GFR (Non-Af Amer) > 60.0 ml/min 11/15/18 14:46 BUN/Creatinine Ratio 10.0 11/15/18 14:46 Glucose 131 mg/dL (70-105) H 11/15/18 14:46 Calcium 9.6 mg/dL (8.6-10.3) 11/15/18 14:46 Total Bilirubin 0.5 mg/dL (0.3-1.0) 11/15/18 14:46 AST 15 U/L (13-39) 11/15/18 14:46 ALT 11 U/L (7-52) 11/15/18 14:46 Alkaline Phosphatase 40 U/L (34-104) 11/15/18 14:46 Troponin I 0.01 ng/mL (0.01-0.05) 11/15/18 14:46 Total Protein 6.4 gm/dL (6.0-8.3) 11/15/18 14:46 Albumin 4.4 gm/dL (3.7-5.3) 11/15/18 14:46 Globulin 2.0 gm/dL 11/15/18 14:46 Albumin/Globulin Ratio 2.2 (1.0-1.8) H 11/15/18 14:46 Triglycerides 90 mg/dL (<150) 11/15/18 14:46 Cholesterol 194 mg/dL (<200) 11/15/18 14:46 LDL Cholesterol Direct 115 mg/dL (75-193) 11/15/18 14:46 HDL Cholesterol 62 mg/dL (23-92) 11/15/18 14:46 TSH 1.07 uIU/ml (0.34-5.60) 11/15/18 14:46 Serum , Qual NEGATIVE (NEGATIVE) 11/15/18 14:46 Salicylates < 25.0 mg/L (30.0-100.0) L 11/15/18 14:46 Acetaminophen < 10.0 ug/mL (10.0-30.0) L 11/15/18 14:46 Ethyl Alcohol < 10 mg/dL (0-10) 11/15/18 14:46 RPR NONREACTIVE (NONREACTIVE) 11/15/18 14:46 - Physical Exam Vitals and I&O: Vital Signs Temp 97 F 11/21/18 06:36 Pulse 60 11/21/18 07:45 Resp 14 11/21/18 07:45 BP 121/65 11/21/18 06:36 Pulse Ox 96 11/21/18 07:45 Intake & Output 11/20/18 11/21/18 11/21/18 18:59 06:59 18:59 Intake Total 800 240 Balance 800 240 Intake: Oral 800 240 Other: # Voids 2 1 # Bowel Movements 1 Active Medications: Current Medications Acetaminophen (Tylenol) 650 mg PO Q4HR PRN PRN Reason: Mild Pain / Temp above 100 Stop: 01/14/19 18:29 Al Hydrox/Mg Hydrox/Simethicone (Maalox) 30 ml PO Q4HR PRN PRN Reason: GI DISTRESS Stop: 01/14/19 18:29 Albuterol Sulfate (Albuterol 2.5mg/3ml Neb Ud) 2.5 mg HHN Q2HRT PRN PRN Reason: Shortness of Breath or Wheeze Stop: 01/15/19 12:03 Docusate Sodium (Colace) 100 mg PO BID ASH Stop: 01/15/19 08:59 Last Admin: 11/21/18 09:03 Dose: 100 mg Ipratropium [place] (Atrovent Neb 0.5mg/2.5ml) 0.5 mg IH Q2HRT PRN PRN Reason: Shortness of Breath or Wheeze Stop: 01/15/19 12:03 Lorazepam (Ativan) 0.5 mg PO Q6HR PRN; Protocol PRN Reason: Anxiety Stop: 01/14/19 19:31 Last Admin: 11/19/18 23:56 Dose: 0.5 mg Magnesium Hydroxide (Milk Of Magnesia) 30 ml PO HS PRN PRN Reason: Constipation Magnesium Hydroxide (Milk Of Magnesia) 30 ml PO DAILY PRN PRN Reason: Constipation Stop: 01/14/19 18:37 Multivitamins/Vitamin C (Theragran) 1 tab PO DAILY ASH Stop: 01/15/19 08:59 Last Admin: 11/21/18 09:02 Dose: 1 tab Olanzapine (Zyprexa) 10 mg PO HS ASH; Protocol Stop: 01/18/19 20:59 Last Admin: 11/20/18 20:46 Dose: 10 mg Zolpidem Tartrate (Ambien) 5 mg PO HS PRN PRN Reason: Insomnia Stop: 01/14/19 18:29 Last Admin: 11/20/18 20:46 Dose: 5 mg General: alert, thin HEENT: NC/AT, PERRLA, EOMI Neck: Supple, No JVD Lungs: CTAB Cardiovascular: RRR, Normal S1, Normal S2, without murmur Abdomen: soft, non-tender, thin, positive bowel sound Extremities: excoriation Neurological: no change Internal Medicine Assmt/Plan - Assessment Assessment: ASSESSMENT AND PLAN: Hyperglycemia, COPD, GERD, psych disorder. - Plan Plan: PLAN: We will provide the patient with bronchodilator and _monitor___ blood sugar closely. We will provide the patient with a proton pump inhibitor. We will continue monitoring the patient closely with you, Dr. Dillon. Nutritional Asmnt/Malnutr-PDOC - Dietary Evaluation Malnutrition Findings (Please click <Entered> for more info): Nutritional Asmnt/Malnutrition Start: 11/21/18 10: 47 Text: Status: Complete Freq: Protocol: Document 11/21/18 10:48 [place] (Rec: 11/21/18 11:00 [place] [email or web address]) Nutritional Asmnt/Malnutrition Patient General Information Nutritional Screening Low Risk Diagnosis Schizophrenia Pertinent Medical Hx/Surgical Hx GERD, COPD, nicotine dependency Subjective Information Pt is a 58-year-old female admitted from SNF on 11/15 d/t onset of hallucinations and delusions x2 days. Per Meal/ Nutrition Activity Record, Pt has eaten 100% meals since admit date except 11/20 when Pt ate 50% breakfast and dinner- adequate to meet nutritional needs. HT: 51 WT: 97 LB (44.09 KG) BMI: 18.33 (Normal) GI: WNL, Flat, soft, non- tender BM: 11/21 x1 I/O: 1040/Not Noted Skin: WNL, intact Abhniav: 21 Diet Order: Regular Estimated Energy Needs: (Adult , CBW) 6574-3448 kcals (25-30 kcals/ kg) 44-53G Pro (0.8-0.9 g/kg) 3401-7656 ml (35-40 ml/kg) Current Diet Order/ Nutrition Support Regular Pertinent Medications Maalox (PRN), Albuterol (PRN), Colace, MOM (PRN), Theregran Pertinent Labs No New Labs To Compare 11/15: Glucose 131 Nutritional Hx/Data Height 1.55 m Height (Calculated Centimeters) 154.9 Current Weight (lbs) 43.998 kg Weight (Calculated Kilograms) 44.0 Weight (Calculated Grams) 85526.5 [place] Body Weight 105 lb (47.73 kg) % [place] Body Weight 92 Body Mass Index (BMI) 18.3 Weight Status Approriate GI Symptoms GI Symptoms None Last BM 11/21 x1 Skin Integrity/Comment: WNL, intact Abhinav: 21 Estimated Nutritional Goals BEE in Kcals: Using Current wt Calories/Kcals/Kg 25-30 Kcals Calculated 5861-4000 Protein: Using Current wt Protein g/k.8-0.9 Protein Calculated 44-53 Fluid: ml 8765-3671 ml (35-40 ml/kg) Nutritional Problem 1. Problem Problem Altered nutrition related labs Etiology r/t endocrine dysfunction Signs/Symptoms: aeb glucose 131 on admittance Malnutrition Related to Morbid Obesity Malnutrition related to morbid obesity No Intervention/Recommendation Comments Continue with Regular diet as ordered. Expected Outcomes/Goals Expected Outcomes/Goals 1. PO intake to meet 75% of nutritional needs. 2. Monitor PO intake, wt, nutrition related labs, and skin integrity. 3. F/U as low risk in 7 days, 11/28
[2018-11-22] MEDS: Multivitamin Tab PO SCH (09:00)
--- NOTE | 2018-11-22 12:19 | Internal Medicine Prog Note ---
Internal Medicine Subjective - Subjective Patient seen and examined:: with staff, chart reviewed Patient is:: awake, verbal, interactive, talking, denies any new complaints Per staff patient has:: no adverse event, no episodes of fall, poor appetite, tolerating meds Internal Medicine Objective - Results Result Diagrams: 11/15/18 14:46 11/15/18 14:46 Recent Labs: Laboratory Last Values WBC 5.5 Th/cmm (4.8-10.8) 11/15/18 14:46 RBC 4.90 Mil/cmm (3.80-5.10) 11/15/18 14:46 Hgb 15.9 gm/dL (12-16) 11/15/18 14:46 Hct 47.0 % (41.0-60) 11/15/18 14:46 MCV 95.9 fl (81-100) 11/15/18 14:46 MCH 32.5 pg (27.0-31.0) H 11/15/18 14:46 MCHC Differential 33.9 pg (28.0-36.0) 11/15/18 14:46 RDW 12.0 % (11.5-20.0) 11/15/18 14:46 Plt Count 281 Th/cmm (150-400) 11/15/18 14:46 MPV 8.1 fl 11/15/18 14:46 Neutrophils % 46.0 % (40.0-80.0) 11/15/18 14:46 Lymphocytes % 41.4 % (20.0-50.0) 11/15/18 14:46 Monocytes % 6.5 % (2.0-10.0) 11/15/18 14:46 Eosinophils % 1.2 % (0.0-5.0) 11/15/18 14:46 Basophils % 4.9 % (0.0-2.0) H 11/15/18 14:46 Sodium 139 mEq/L (136-145) 11/15/18 14:46 Potassium 3.5 mEq/L (3.5-5.1) 11/15/18 14:46 Chloride 105 mEq/L (98-107) 11/15/18 14:46 Carbon Dioxide 25.9 mEq/L (21.0-31.0) 11/15/18 14:46 Anion Gap 11.6 (7.0-16.0) 11/15/18 14:46 BUN 7 mg/dL (7-25) 11/15/18 14:46 Creatinine 0.7 mg/dL (0.6-1.2) 11/15/18 14:46 Est GFR ( Amer) > 60.0 ml/min (>90) 11/15/18 14:46 Est GFR (Non-Af Amer) > 60.0 ml/min 11/15/18 14:46 BUN/Creatinine Ratio 10.0 11/15/18 14:46 Glucose 131 mg/dL (70-105) H 11/15/18 14:46 Calcium 9.6 mg/dL (8.6-10.3) 11/15/18 14:46 Total Bilirubin 0.5 mg/dL (0.3-1.0) 11/15/18 14:46 AST 15 U/L (13-39) 11/15/18 14:46 ALT 11 U/L (7-52) 11/15/18 14:46 Alkaline Phosphatase 40 U/L (34-104) 11/15/18 14:46 Troponin I 0.01 ng/mL (0.01-0.05) 11/15/18 14:46 Total Protein 6.4 gm/dL (6.0-8.3) 11/15/18 14:46 Albumin 4.4 gm/dL (3.7-5.3) 11/15/18 14:46 Globulin 2.0 gm/dL 11/15/18 14:46 Albumin/Globulin Ratio 2.2 (1.0-1.8) H 11/15/18 14:46 Triglycerides 90 mg/dL (<150) 11/15/18 14:46 Cholesterol 194 mg/dL (<200) 11/15/18 14:46 LDL Cholesterol Direct 115 mg/dL (75-193) 11/15/18 14:46 HDL Cholesterol 62 mg/dL (23-92) 11/15/18 14:46 TSH 1.07 uIU/ml (0.34-5.60) 11/15/18 14:46 Serum , Qual NEGATIVE (NEGATIVE) 11/15/18 14:46 Salicylates < 25.0 mg/L (30.0-100.0) L 11/15/18 14:46 Acetaminophen < 10.0 ug/mL (10.0-30.0) L 11/15/18 14:46 Ethyl Alcohol < 10 mg/dL (0-10) 11/15/18 14:46 RPR NONREACTIVE (NONREACTIVE) 11/15/18 14:46 - Physical Exam Vitals and I&O: Vital Signs Temp 97.6 F 11/22/18 06:32 Pulse 72 11/22/18 07:31 Resp 18 11/22/18 07:32 BP 109/57 11/22/18 06:32 Pulse Ox 96 11/22/18 07:31 Intake & Output 11/21/18 11/22/18 11/22/18 18:59 06:59 18:59 Intake Total 900 480 Balance 900 480 Intake: Oral 900 480 Other: # Voids 3 3 # Bowel Movements 1 0 Active Medications: Current Medications Acetaminophen (Tylenol) 650 mg PO Q4HR PRN PRN Reason: Mild Pain / Temp above 100 Stop: 01/14/19 18:29 Al Hydrox/Mg Hydrox/Simethicone (Maalox) 30 ml PO Q4HR PRN PRN Reason: GI DISTRESS Stop: 01/14/19 18:29 Albuterol Sulfate (Albuterol 2.5mg/3ml Neb Ud) 2.5 mg HHN Q2HRT PRN PRN Reason: Shortness of Breath or Wheeze Stop: 01/15/19 12:03 Docusate Sodium (Colace) 100 mg PO BID ASH Stop: 01/15/19 08:59 Last Admin: 11/22/18 09:00 Dose: 100 mg Ipratropium [place] (Atrovent Neb 0.5mg/2.5ml) 0.5 mg IH Q2HRT PRN PRN Reason: Shortness of Breath or Wheeze Stop: 01/15/19 12:03 Lorazepam (Ativan) 0.5 mg PO Q6HR PRN; Protocol PRN Reason: Anxiety Stop: 01/14/19 19:31 Last Admin: 11/19/18 23:56 Dose: 0.5 mg Magnesium Hydroxide (Milk Of Magnesia) 30 ml PO HS PRN PRN Reason: Constipation Magnesium Hydroxide (Milk Of Magnesia) 30 ml PO DAILY PRN PRN Reason: Constipation Stop: 01/14/19 18:37 Multivitamins/Vitamin C (Theragran) 1 tab PO DAILY ASH Stop: 01/15/19 08:59 Last Admin: 11/22/18 09:00 Dose: 1 tab Olanzapine (Zyprexa) 10 mg PO HS ASH; Protocol Stop: 01/18/19 20:59 Last Admin: 11/21/18 20:36 Dose: 10 mg Zolpidem Tartrate (Ambien) 5 mg PO HS PRN PRN Reason: Insomnia Stop: 01/14/19 18:29 Last Admin: 11/21/18 20:36 Dose: 5 mg General: alert, thin HEENT: NC/AT, PERRLA, EOMI Neck: Supple, No JVD Lungs: CTAB Cardiovascular: RRR, Normal S1, Normal S2, without murmur Abdomen: soft, non-tender, thin, positive bowel sound Extremities: excoriation Neurological: no change Internal Medicine Assmt/Plan - Assessment Assessment: ASSESSMENT AND PLAN: Hyperglycemia, COPD, GERD, psych disorder. - Plan Plan: PLAN: We will provide the patient with bronchodilator and _monitor___ blood sugar closely. We will provide the patient with a proton pump inhibitor. We will continue monitoring the patient closely with you, Dr. Dillon. Nutritional Asmnt/Malnutr-PDOC - Dietary Evaluation Malnutrition Findings (Please click <Entered> for more info): Nutritional Asmnt/Malnutrition Start: 11/21/18 10: 47 Text: Status: Complete Freq: Protocol: Document 11/21/18 10:48 [place] (Rec: 11/21/18 11:00 [place] [email or web address]) Nutritional Asmnt/Malnutrition Patient General Information Nutritional Screening Low Risk Diagnosis Schizophrenia Pertinent Medical Hx/Surgical Hx GERD, COPD, nicotine dependency Subjective Information Pt is a 58-year-old female admitted from SNF on 11/15 d/t onset of hallucinations and delusions x2 days. Per Meal/ Nutrition Activity Record, Pt has eaten 100% meals since admit date except 11/20 when Pt ate 50% breakfast and dinner- adequate to meet nutritional needs. HT: 51 WT: 97 LB (44.09 KG) BMI: 18.33 (Normal) GI: WNL, Flat, soft, non- tender BM: 11/21 x1 I/O: 1040/Not Noted Skin: WNL, intact Abhinav: 21 Diet Order: Regular Estimated Energy Needs: (Adult , CBW) 3610-5260 kcals (25-30 kcals/ kg) 44-53G Pro (0.8-0.9 g/kg) 0073-7171 ml (35-40 ml/kg) Current Diet Order/ Nutrition Support Regular Pertinent Medications Maalox (PRN), Albuterol (PRN), Colace, MOM (PRN), Theregran Pertinent Labs No New Labs To Compare 11/15: Glucose 131 Nutritional Hx/Data Height 1.55 m Height (Calculated Centimeters) 154.9 Current Weight (lbs) 43.998 kg Weight (Calculated Kilograms) 44.0 Weight (Calculated Grams) 56684.5 [place] Body Weight 105 lb (47.73 kg) % [place] Body Weight 92 Body Mass Index (BMI) 18.3 Weight Status Approriate GI Symptoms GI Symptoms None Last BM 11/21 x1 Skin Integrity/Comment: WNL, intact Abhinav: 21 Estimated Nutritional Goals BEE in Kcals: Using Current wt Calories/Kcals/Kg 25-30 Kcals Calculated 0160-1563 Protein: Using Current wt Protein g/k.8-0.9 Protein Calculated 44-53 Fluid: ml 7308-3987 ml (35-40 ml/kg) Nutritional Problem 1. Problem Problem Altered nutrition related labs Etiology r/t endocrine dysfunction Signs/Symptoms: aeb glucose 131 on admittance Malnutrition Related to Morbid Obesity Malnutrition related to morbid obesity No Intervention/Recommendation Comments Continue with Regular diet as ordered. Expected Outcomes/Goals Expected Outcomes/Goals 1. PO intake to meet 75% of nutritional needs. 2. Monitor PO intake, wt, nutrition related labs, and skin integrity. 3. F/U as low risk in 7 days, 11/28
--- NOTE | 2018-11-22 22:05 | Progress Notes ---
DATE: 11/22/2018 SUBJECTIVE: The patient was seen, discussed with staff, chart reviewed. Denied feeling depressed. Still having some anxiety, irritability, some anger outburst. Continues to require redirecting by staff. She is taking her medications. Her sleep and appetite are fair. Insight still limited. ASSESSMENT: The patient continues to stabilize in a setting. PLAN: Continue hospitalization stabilization. Continue Zyprexa. ESTIMATED LENGTH OF STAY: 1-3 days. JOB# [id number]
[2018-11-23] MEDS: Multivitamin Tab PO SCH (09:22)
--- NOTE | 2018-11-23 12:39 | Internal Medicine Prog Note ---
Internal Medicine Subjective - Subjective Patient seen and examined:: with staff, chart reviewed Patient is:: awake, verbal, interactive, talking, denies any new complaints Per staff patient has:: no adverse event, no episodes of fall, poor appetite, tolerating meds Internal Medicine Objective - Results Result Diagrams: 11/15/18 14:46 11/15/18 14:46 Recent Labs: Laboratory Last Values WBC 5.5 Th/cmm (4.8-10.8) 11/15/18 14:46 RBC 4.90 Mil/cmm (3.80-5.10) 11/15/18 14:46 Hgb 15.9 gm/dL (12-16) 11/15/18 14:46 Hct 47.0 % (41.0-60) 11/15/18 14:46 MCV 95.9 fl (81-100) 11/15/18 14:46 MCH 32.5 pg (27.0-31.0) H 11/15/18 14:46 MCHC Differential 33.9 pg (28.0-36.0) 11/15/18 14:46 RDW 12.0 % (11.5-20.0) 11/15/18 14:46 Plt Count 281 Th/cmm (150-400) 11/15/18 14:46 MPV 8.1 fl 11/15/18 14:46 Neutrophils % 46.0 % (40.0-80.0) 11/15/18 14:46 Lymphocytes % 41.4 % (20.0-50.0) 11/15/18 14:46 Monocytes % 6.5 % (2.0-10.0) 11/15/18 14:46 Eosinophils % 1.2 % (0.0-5.0) 11/15/18 14:46 Basophils % 4.9 % (0.0-2.0) H 11/15/18 14:46 Sodium 139 mEq/L (136-145) 11/15/18 14:46 Potassium 3.5 mEq/L (3.5-5.1) 11/15/18 14:46 Chloride 105 mEq/L (98-107) 11/15/18 14:46 Carbon Dioxide 25.9 mEq/L (21.0-31.0) 11/15/18 14:46 Anion Gap 11.6 (7.0-16.0) 11/15/18 14:46 BUN 7 mg/dL (7-25) 11/15/18 14:46 Creatinine 0.7 mg/dL (0.6-1.2) 11/15/18 14:46 Est GFR ( Amer) > 60.0 ml/min (>90) 11/15/18 14:46 Est GFR (Non-Af Amer) > 60.0 ml/min 11/15/18 14:46 BUN/Creatinine Ratio 10.0 11/15/18 14:46 Glucose 131 mg/dL (70-105) H 11/15/18 14:46 Calcium 9.6 mg/dL (8.6-10.3) 11/15/18 14:46 Total Bilirubin 0.5 mg/dL (0.3-1.0) 11/15/18 14:46 AST 15 U/L (13-39) 11/15/18 14:46 ALT 11 U/L (7-52) 11/15/18 14:46 Alkaline Phosphatase 40 U/L (34-104) 11/15/18 14:46 Troponin I 0.01 ng/mL (0.01-0.05) 11/15/18 14:46 Total Protein 6.4 gm/dL (6.0-8.3) 11/15/18 14:46 Albumin 4.4 gm/dL (3.7-5.3) 11/15/18 14:46 Globulin 2.0 gm/dL 11/15/18 14:46 Albumin/Globulin Ratio 2.2 (1.0-1.8) H 11/15/18 14:46 Triglycerides 90 mg/dL (<150) 11/15/18 14:46 Cholesterol 194 mg/dL (<200) 11/15/18 14:46 LDL Cholesterol Direct 115 mg/dL (75-193) 11/15/18 14:46 HDL Cholesterol 62 mg/dL (23-92) 11/15/18 14:46 TSH 1.07 uIU/ml (0.34-5.60) 11/15/18 14:46 Serum , Qual NEGATIVE (NEGATIVE) 11/15/18 14:46 Salicylates < 25.0 mg/L (30.0-100.0) L 11/15/18 14:46 Acetaminophen < 10.0 ug/mL (10.0-30.0) L 11/15/18 14:46 Ethyl Alcohol < 10 mg/dL (0-10) 11/15/18 14:46 RPR NONREACTIVE (NONREACTIVE) 11/15/18 14:46 - Physical Exam Vitals and I&O: Vital Signs Temp 98.2 F 11/23/18 05:54 Pulse 66 11/23/18 08:16 Resp 16 11/23/18 08:16 BP 112/61 11/22/18 19:43 Pulse Ox 95 11/23/18 08:16 Intake & Output 11/22/18 11/23/18 11/23/18 18:59 06:59 18:59 Intake Total 900 240 Balance 900 240 Intake: Oral 900 240 Other: # Voids 3 2 # Bowel Movements 1 0 Active Medications: Current Medications Acetaminophen (Tylenol) 650 mg PO Q4HR PRN PRN Reason: Mild Pain / Temp above 100 Stop: 01/14/19 18:29 Al Hydrox/Mg Hydrox/Simethicone (Maalox) 30 ml PO Q4HR PRN PRN Reason: GI DISTRESS Stop: 01/14/19 18:29 Albuterol Sulfate (Albuterol 2.5mg/3ml Neb Ud) 2.5 mg HHN Q2HRT PRN PRN Reason: Shortness of Breath or Wheeze Stop: 01/15/19 12:03 Docusate Sodium (Colace) 100 mg PO BID ASH Stop: 01/15/19 08:59 Last Admin: 11/23/18 09:22 Dose: 100 mg Ipratropium [place] (Atrovent Neb 0.5mg/2.5ml) 0.5 mg IH Q2HRT PRN PRN Reason: Shortness of Breath or Wheeze Stop: 01/15/19 12:03 Lorazepam (Ativan) 0.5 mg PO Q6HR PRN; Protocol PRN Reason: Anxiety Stop: 01/14/19 19:31 Last Admin: 11/19/18 23:56 Dose: 0.5 mg Magnesium Hydroxide (Milk Of Magnesia) 30 ml PO HS PRN PRN Reason: Constipation Magnesium Hydroxide (Milk Of Magnesia) 30 ml PO DAILY PRN PRN Reason: Constipation Stop: 01/14/19 18:37 Multivitamins/Vitamin C (Theragran) 1 tab PO DAILY ASH Stop: 01/15/19 08:59 Last Admin: 11/23/18 09:22 Dose: 1 tab Olanzapine (Zyprexa) 10 mg PO HS ASH; Protocol Stop: 01/18/19 20:59 Last Admin: 11/22/18 20:15 Dose: 10 mg Zolpidem Tartrate (Ambien) 5 mg PO HS PRN PRN Reason: Insomnia Stop: 01/14/19 18:29 Last Admin: 11/21/18 20:36 Dose: 5 mg General: alert, thin HEENT: NC/AT, PERRLA, EOMI Neck: Supple, No JVD Lungs: CTAB Cardiovascular: RRR, Normal S1, Normal S2, without murmur Abdomen: soft, non-tender, thin, positive bowel sound Extremities: excoriation Neurological: no change Internal Medicine Assmt/Plan - Assessment Assessment: ASSESSMENT AND PLAN: Hyperglycemia, COPD, GERD, psych disorder. - Plan Plan: PLAN: We will provide the patient with bronchodilator and _monitor___ blood sugar closely. We will provide the patient with a proton pump inhibitor. We will continue monitoring the patient closely with you, Dr. Dillon. Nutritional Asmnt/Malnutr-PDOC - Dietary Evaluation Malnutrition Findings (Please click <Entered> for more info): Nutritional Asmnt/Malnutrition Start: 11/21/18 10: 47 Text: Status: Complete Freq: Protocol: Document 11/21/18 10:48 [place] (Rec: 11/21/18 11:00 [place] [email or web address]) Nutritional Asmnt/Malnutrition Patient General Information Nutritional Screening Low Risk Diagnosis Schizophrenia Pertinent Medical Hx/Surgical Hx GERD, COPD, nicotine dependency Subjective Information Pt is a 58-year-old female admitted from SNF on 11/15 d/t onset of hallucinations and delusions x2 days. Per Meal/ Nutrition Activity Record, Pt has eaten 100% meals since admit date except 11/20 when Pt ate 50% breakfast and dinner- adequate to meet nutritional needs. HT: 51 WT: 97 LB (44.09 KG) BMI: 18.33 (Normal) GI: WNL, Flat, soft, non- tender BM: 11/21 x1 I/O: 1040/Not Noted Skin: WNL, intact Abhinav: 21 Diet Order: Regular Estimated Energy Needs: (Adult , CBW) 8194-5544 kcals (25-30 kcals/ kg) 44-53G Pro (0.8-0.9 g/kg) 8184-7731 ml (35-40 ml/kg) Current Diet Order/ Nutrition Support Regular Pertinent Medications Maalox (PRN), Albuterol (PRN), Colace, MOM (PRN), Theregran Pertinent Labs No New Labs To Compare 11/15: Glucose 131 Nutritional Hx/Data Height 1.55 m Height (Calculated Centimeters) 154.9 Current Weight (lbs) 43.998 kg Weight (Calculated Kilograms) 44.0 Weight (Calculated Grams) 70933.5 [place] Body Weight 105 lb (47.73 kg) % [place] Body Weight 92 Body Mass Index (BMI) 18.3 Weight Status Approriate GI Symptoms GI Symptoms None Last BM 11/21 x1 Skin Integrity/Comment: WNL, intact Abhinav: 21 Estimated Nutritional Goals BEE in Kcals: Using Current wt Calories/Kcals/Kg 25-30 Kcals Calculated 8314-4685 Protein: Using Current wt Protein g/k.8-0.9 Protein Calculated 44-53 Fluid: ml 6274-4340 ml (35-40 ml/kg) Nutritional Problem 1. Problem Problem Altered nutrition related labs Etiology r/t endocrine dysfunction Signs/Symptoms: aeb glucose 131 on admittance Malnutrition Related to Morbid Obesity Malnutrition related to morbid obesity No Intervention/Recommendation Comments Continue with Regular diet as ordered. Expected Outcomes/Goals Expected Outcomes/Goals 1. PO intake to meet 75% of nutritional needs. 2. Monitor PO intake, wt, nutrition related labs, and skin integrity. 3. F/U as low risk in 7 days, 11/28
--- NOTE | 2018-11-23 20:35 | Progress Notes ---
DATE: 11/23/2018 SUBJECTIVE: The patient was seen, did not seem depressed; however, still having some anxiety, was asking to smoke more cigarettes that she has been smoking since she was 16 and she smokes 15-20 cigarettes a day. The patient is still at times having episodes where she becomes argumentative. ASSESSMENT: The patient's anxiety and anger outbursts are less frequent, paranoia still is not improved and she is tolerating the increased dose of Zyprexa. PLAN: Continue hospitalization stabilization. Estimated length of stay probably 1-2 more days. JOB# [id number]
--- NOTE | 2018-11-23 21:20 | Progress Notes ---
DATE: 11/23/2018 PSYCHOLOGY PROGRESS NOTE SUBJECTIVE: The patient is seen and is interviewed. Case is discussed with staff. The patient reports that she continues to feel anxious. The patient complained about not being able to smoke when she wants to and that she feels this is unfair. The patient has difficulty following through with staff direction. The patient seemed argumentative; however, the patient was able to respond to the clinical questions. Sleep is fair. Appetite is okay. OBJECTIVE: Mood is anxious. Affect is broad and animated. Thought process shows to be generally argumentative with perseveration on smoking. The patient denied any hallucinations or delusions. The patient is taking her p.o. medications. The patient is having less frequent anger outbursts according to the staff, but continues to be easily frustrated. ASSESSMENT AND PLAN: The patient's anxiety persists as well as some paranoid ideation. We will continue to provide reality integration. We will continue to provide a simple somatic anxiety reduction skill including regulated breathing. The patient is not applying this particular skill. We will review this. We provided coping strategies for chronic mental illness as well as for phase of life issues. We encouraged the patient to demonstrate emotional and self-regulation. We provided remotivation for the patient to become compliant and stay compliant with her care and treatment. We will follow up in 2 days to continue the present treatment if the patient remains on the unit. JOB# [id number] BESSIE
[2018-11-24] MEDS: Multivitamin Tab PO SCH (08:25)
--- NOTE | 2018-11-24 13:11 | Internal Medicine Prog Note ---
Internal Medicine Subjective - Subjective Patient seen and examined:: with staff, chart reviewed Patient is:: awake, verbal, interactive, talking, denies any new complaints Per staff patient has:: no adverse event, no episodes of fall, poor appetite, tolerating meds Internal Medicine Objective - Results Result Diagrams: 11/15/18 14:46 11/15/18 14:46 Recent Labs: Laboratory Last Values WBC 5.5 Th/cmm (4.8-10.8) 11/15/18 14:46 RBC 4.90 Mil/cmm (3.80-5.10) 11/15/18 14:46 Hgb 15.9 gm/dL (12-16) 11/15/18 14:46 Hct 47.0 % (41.0-60) 11/15/18 14:46 MCV 95.9 fl (81-100) 11/15/18 14:46 MCH 32.5 pg (27.0-31.0) H 11/15/18 14:46 MCHC Differential 33.9 pg (28.0-36.0) 11/15/18 14:46 RDW 12.0 % (11.5-20.0) 11/15/18 14:46 Plt Count 281 Th/cmm (150-400) 11/15/18 14:46 MPV 8.1 fl 11/15/18 14:46 Neutrophils % 46.0 % (40.0-80.0) 11/15/18 14:46 Lymphocytes % 41.4 % (20.0-50.0) 11/15/18 14:46 Monocytes % 6.5 % (2.0-10.0) 11/15/18 14:46 Eosinophils % 1.2 % (0.0-5.0) 11/15/18 14:46 Basophils % 4.9 % (0.0-2.0) H 11/15/18 14:46 Sodium 139 mEq/L (136-145) 11/15/18 14:46 Potassium 3.5 mEq/L (3.5-5.1) 11/15/18 14:46 Chloride 105 mEq/L (98-107) 11/15/18 14:46 Carbon Dioxide 25.9 mEq/L (21.0-31.0) 11/15/18 14:46 Anion Gap 11.6 (7.0-16.0) 11/15/18 14:46 BUN 7 mg/dL (7-25) 11/15/18 14:46 Creatinine 0.7 mg/dL (0.6-1.2) 11/15/18 14:46 Est GFR ( Amer) > 60.0 ml/min (>90) 11/15/18 14:46 Est GFR (Non-Af Amer) > 60.0 ml/min 11/15/18 14:46 BUN/Creatinine Ratio 10.0 11/15/18 14:46 Glucose 131 mg/dL (70-105) H 11/15/18 14:46 Calcium 9.6 mg/dL (8.6-10.3) 11/15/18 14:46 Total Bilirubin 0.5 mg/dL (0.3-1.0) 11/15/18 14:46 AST 15 U/L (13-39) 11/15/18 14:46 ALT 11 U/L (7-52) 11/15/18 14:46 Alkaline Phosphatase 40 U/L (34-104) 11/15/18 14:46 Troponin I 0.01 ng/mL (0.01-0.05) 11/15/18 14:46 Total Protein 6.4 gm/dL (6.0-8.3) 11/15/18 14:46 Albumin 4.4 gm/dL (3.7-5.3) 11/15/18 14:46 Globulin 2.0 gm/dL 11/15/18 14:46 Albumin/Globulin Ratio 2.2 (1.0-1.8) H 11/15/18 14:46 Triglycerides 90 mg/dL (<150) 11/15/18 14:46 Cholesterol 194 mg/dL (<200) 11/15/18 14:46 LDL Cholesterol Direct 115 mg/dL (75-193) 11/15/18 14:46 HDL Cholesterol 62 mg/dL (23-92) 11/15/18 14:46 TSH 1.07 uIU/ml (0.34-5.60) 11/15/18 14:46 Serum , Qual NEGATIVE (NEGATIVE) 11/15/18 14:46 Salicylates < 25.0 mg/L (30.0-100.0) L 11/15/18 14:46 Acetaminophen < 10.0 ug/mL (10.0-30.0) L 11/15/18 14:46 Ethyl Alcohol < 10 mg/dL (0-10) 11/15/18 14:46 RPR NONREACTIVE (NONREACTIVE) 11/15/18 14:46 - Physical Exam Vitals and I&O: Vital Signs Temp 98.6 F 11/24/18 06:30 Pulse 66 11/24/18 07:45 Resp 18 11/24/18 07:45 BP 109/62 11/24/18 06:30 Pulse Ox 94 11/24/18 07:45 Intake & Output 11/23/18 11/24/18 11/24/18 18:59 06:59 18:59 Intake Total 900 480 Balance 900 480 Intake: Oral 900 480 Other: # Voids 3 3 # Bowel Movements 0 0 Active Medications: Current Medications Acetaminophen (Tylenol) 650 mg PO Q4HR PRN PRN Reason: Mild Pain / Temp above 100 Stop: 01/14/19 18:29 Al Hydrox/Mg Hydrox/Simethicone (Maalox) 30 ml PO Q4HR PRN PRN Reason: GI DISTRESS Stop: 01/14/19 18:29 Albuterol Sulfate (Albuterol 2.5mg/3ml Neb Ud) 2.5 mg HHN Q2HRT PRN PRN Reason: Shortness of Breath or Wheeze Stop: 01/15/19 12:03 Docusate Sodium (Colace) 100 mg PO BID ASH Stop: 01/15/19 08:59 Last Admin: 11/24/18 08:25 Dose: 100 mg Ipratropium Lit[place] (Atrovent Neb 0.5mg/2.5ml) 0.5 mg IH Q2HRT PRN PRN Reason: Shortness of Breath or Wheeze Stop: 01/15/19 12:03 Lorazepam (Ativan) 0.5 mg PO Q6HR PRN; Protocol PRN Reason: Anxiety Stop: 01/14/19 19:31 Last Admin: 11/19/18 23:56 Dose: 0.5 mg Magnesium Hydroxide (Milk Of Magnesia) 30 ml PO HS PRN PRN Reason: Constipation Magnesium Hydroxide (Milk Of Magnesia) 30 ml PO DAILY PRN PRN Reason: Constipation Stop: 01/14/19 18:37 Multivitamins/Vitamin C (Theragran) 1 tab PO DAILY ASH Stop: 01/15/19 08:59 Last Admin: 11/24/18 08:25 Dose: 1 tab Olanzapine (Zyprexa) 10 mg PO HS ASH; Protocol Stop: 01/18/19 20:59 Last Admin: 11/23/18 20:50 Dose: 10 mg Zolpidem Tartrate (Ambien) 5 mg PO HS PRN PRN Reason: Insomnia Stop: 01/14/19 18:29 Last Admin: 11/21/18 20:36 Dose: 5 mg General: alert, thin HEENT: NC/AT, PERRLA, EOMI Neck: Supple, No JVD Lungs: CTAB Cardiovascular: RRR, Normal S1, Normal S2, without murmur Abdomen: soft, non-tender, thin, positive bowel sound Extremities: excoriation Neurological: no change Internal Medicine Assmt/Plan - Assessment Assessment: ASSESSMENT AND PLAN: Hyperglycemia, COPD, GERD, psych disorder. - Plan Plan: PLAN: We will provide the patient with bronchodilator and _monitor___ blood sugar closely. We will provide the patient with a proton pump inhibitor. We will continue monitoring the patient closely with you, Dr. Dillon. Nutritional Asmnt/Malnutr-PDOC - Dietary Evaluation Malnutrition Findings (Please click <Entered> for more info): Nutritional Asmnt/Malnutrition Start: 11/21/18 10: 47 Text: Status: Complete Freq: Protocol: Document 11/21/18 10:48 [place] (Rec: 11/21/18 11:00 [place] [email or web address]) Nutritional Asmnt/Malnutrition Patient General Information Nutritional Screening Low Risk Diagnosis Schizophrenia Pertinent Medical Hx/Surgical Hx GERD, COPD, nicotine dependency Subjective Information Pt is a 58-year-old female admitted from SNF on 11/15 d/t onset of hallucinations and delusions x2 days. Per Meal/ Nutrition Activity Record, Pt has eaten 100% meals since admit date except 11/20 when Pt ate 50% breakfast and dinner- adequate to meet nutritional needs. HT: 51 WT: 97 LB (44.09 KG) BMI: 18.33 (Normal) GI: WNL, Flat, soft, non- tender BM: 11/21 x1 I/O: 1040/Not Noted Skin: WNL, intact Abhinav: 21 Diet Order: Regular Estimated Energy Needs: (Adult , CBW) 7105-9247 kcals (25-30 kcals/ kg) 44-53G Pro (0.8-0.9 g/kg) 9779-7240 ml (35-40 ml/kg) Current Diet Order/ Nutrition Support Regular Pertinent Medications Maalox (PRN), Albuterol (PRN), Colace, MOM (PRN), Theregran Pertinent Labs No New Labs To Compare 11/15: Glucose 131 Nutritional Hx/Data Height 1.55 m Height (Calculated Centimeters) 154.9 Current Weight (lbs) 43.998 kg Weight (Calculated Kilograms) 44.0 Weight (Calculated Grams) 06938.5 [place] Body Weight 105 lb (47.73 kg) % [place] Body Weight 92 Body Mass Index (BMI) 18.3 Weight Status Approriate GI Symptoms GI Symptoms None Last BM 11/21 x1 Skin Integrity/Comment: WNL, intact Abhinav: 21 Estimated Nutritional Goals BEE in Kcals: Using Current wt Calories/Kcals/Kg 25-30 Kcals Calculated 6498-9929 Protein: Using Current wt Protein g/k.8-0.9 Protein Calculated 44-53 Fluid: ml 5876-9682 ml (35-40 ml/kg) Nutritional Problem 1. Problem Problem Altered nutrition related labs Etiology r/t endocrine dysfunction Signs/Symptoms: aeb glucose 131 on admittance Malnutrition Related to Morbid Obesity Malnutrition related to morbid obesity No Intervention/Recommendation Comments Continue with Regular diet as ordered. Expected Outcomes/Goals Expected Outcomes/Goals 1. PO intake to meet 75% of nutritional needs. 2. Monitor PO intake, wt, nutrition related labs, and skin integrity. 3. F/U as low risk in 7 days, 11/28
--- NOTE | 2018-11-24 18:37 | Discharge Summary ---
DATE OF DISCHARGE: 11/24/2018 REASON FOR HOSPITALIZATION: Schizoaffective disorder in acute decompensated state. HISTORY OF PRESENT ILLNESS: The patient is a 58-year-old female who was sent from her facility for increased anxiety and anger outburst episodes of agitation. The patient was becoming more paranoid and restless. The patient was evaluated and admitted. HOSPITALIZATION COURSE: Individual milieu and group therapy was started. Medications were implemented. Zyprexa dose was increased to 10 mg at bedtime. The patient's condition improved. Anger outbursts resolved. Agitation resolved. The patient responded favorably to treatment. On 11/24/2018, the patient was not having suicidal or homicidal thoughts. The patient denies feeling depressed. The patient was no longer angry or agitated. The patient was discharged back to her facility. The patient's appetite and sleep were fair. FINAL DIAGNOSIS: Schizoaffective disorder. The patient with generalized weakness. CONDITION ON DISCHARGE: Improved. Fair sleep and appetite. No suicidal or homicidal thoughts. The patient is ambulatory. DISPOSITION: The patient was discharged to [facility]. EXPECTED COURSE OF RECOVERY: The patient with chronic condition. JOB# [id number]
== END 2018-11-24 17:35 | DRG 885 ==
LOC: ER 14:34 → GERO 17:29
DX: F25.9 Schizoaffective disorder, unspecified (principal); K21.9 Gastro-esophageal reflux disease without esophagitis; F29 Unspecified psychosis not due to a substance or known physiological condition; R73.9 Hyperglycemia, unspecified; F17.200 Nicotine dependence, unspecified, uncomplicated; J44.9 Chronic obstructive pulmonary disease, unspecified; Z87.11 Personal history of peptic ulcer disease
CPT/HCPCS: 36415-UA; 80053-TC; 80061-TC; 80320-TC; 80329-TC; 83036-90; 84443-TC; 84484-TC; 84703-TC; 85025-TC; 86592-TC; 90899; 93005; 94760; G0410; J7051

== ENCOUNTER 2019-07-18 18:01 | Inpatient (IN) | payer MEDICARE, MEDICAID ==
[2019-07-19 01:39] VITALS: BP 126/78
[2019-07-19] MEDS ORDERED: Magnesium Hydroxide (MOM) 30 mL UDC PO PRN (05:33)
[2019-07-19] MEDS ORDERED: Maalox 30 mL Cup PO PRN (05:33)
--- NOTE | 2019-07-19 07:49 | Psychiatric Evaluation ---
DATE OF SERVICE: 07/19/2019 PSYCHIATRIC INITIAL EVALUATION AND MENTAL STATUS EXAM AGE: 59. SEX: Female. PHYSICIAN: Dr. Lindsey. CHIEF COMPLAINT: "They lie and say bad words there." HISTORY OF PRESENT ILLNESS: The patient is a 59-year-old female with a history of schizophrenia. The patient was transferred to the hospital because of increased delusion and agitation. She thinks that staffs have been stealing her belongings and they have stolen her "millions." The patient also has been having difficulty following directions according to the report. The patient also has been increasingly agitated and has been resisting care in the facility. The patient said that people today telling her "bad language." She also thinks that the people are stealing her belongings and that they are lying. The patient also has not been happy with her treatment and with the placement there. PAST PSYCHIATRIC HISTORY: The patient has a history of schizophrenia. PAST MEDICAL HISTORY: The patient has chronic obstructive pulmonary disease and gastroesophageal reflux disease. SOCIAL HISTORY: The patient lives in [facility] and she has been under my care and Dr. Brown' care. She has been taking Zyprexa 10 mg every day. The patient has one daughter that is a 25-year-old and she is in touch with her. She denies any alcohol or any street drug use. The patient also is single and never . ALLERGIES: No known allergies. MENTAL STATUS EXAMINATION: The patient appears slightly older than her stated age. Unkempt. Cooperative. Thought processes are circumstantial, but no flight of ideas. The patient denies any auditory or visual hallucinations or delusions, but she seems to be suspicious and paranoid about staff in the facility. The patient denies any suicide or homicide ideations. The patient is alert and oriented to time, place, person, and situation. Intact immediate, recent and remote memories. Fair insight. Judgment is questionable. She seems to be of average intelligence based on her verbal ability. ASSESSMENT: PRIMARY DIAGNOSIS: Schizophrenic disorder, unspecified. MEDICAL DIAGNOSES: 1. Chronic obstructive pulmonary disease. 2. Gastroesophageal reflux disease. TREATMENT PLAN: We will monitor the patient's behavior and condition closely. We will start individual as well as milieu psychotherapy. We will continue Zyprexa and will evaluate patient's condition. ESTIMATED LENGTH OF STAY: 5-7 days. PATIENT'S STRENGTHS AND WEAKNESSES: The patient seems to be in relatively fair health and she is cooperative with her treatment. Weakness is her paranoia and delusions. AFTER DISCHARGE PLAN: The patient will return to [place], unless placement will be recommended. Outpatient treatment and followup, will continue as an outpatient. CRITERIA FOR DISCHARGE: The patient will not be psychotic and will stabilize psychotropic medications and will establish outpatient treatment plans. [facility]# [id number]
[2019-07-19] MEDS: Multivitamin Tab PO SCH (09:47)
[2019-07-19] MEDS: OLANZapine 10 mg Oral Disintegrating Tab PO SCH (20:49)
--- NOTE | 2019-07-20 07:40 | Progress Notes ---
DATE: 07/20/2019 SUBJECTIVE: Chart was reviewed and the patient interviewed. Also discussed the patient's condition with the staff and reviewed records and labs. "I don't want to go back there." The patient continued to express her desire not to return at the same place where she came from and she is expressing that she wants to go to different place. At the same time, the patient was mentioning different names of the places that might be unrealistic to get her there because of the distances from where she is at right now. Also, the patient is still depressed and she is still kind of suspicious and paranoid, but easier to redirect her and easier to follow directions. The patient also still has mood swings at times. She also tends to isolate herself and stays by herself most of the time. Otherwise, the patient continued to take Zyprexa with no side effects. The patient's gait is steady. Vital signs are stable and no new labs are available for review MENTAL STATUS EXAMINATION: Anxious. Unkempt. Thought process is circumstantial, but no flight of ideas. The patient seems to be suspicious and paranoid. ASSESSMENT: The patient is still psychotic and agitated. TREATMENT PLAN: We will continue to monitor her behavior and condition closely. Also, continue adjusting psychotropic medications and working on behavioral modification ESTIMATED LENGTH OF STAY: 3-5 days. REASON FOR CONTINUED HOSPITAL STAY: The patient is still psychotic and agitated and also depressed and needs close monitoring. JOB# [id number]
[2019-07-20] MEDS: Multivitamin Tab PO SCH (08:04)
[2019-07-20] MEDS ORDERED: Magnesium Hydroxide (MOM) 30 mL UDC PO PRN (14:49)
[2019-07-20] MEDS ORDERED: Maalox 30 mL Cup PO PRN (14:49)
[2019-07-20] MEDS ORDERED: Albuterol Nebulizer 2.5mg/3mL HHN PRN (14:49)
--- NOTE | 2019-07-20 15:29 | History & Physical ---
ADMIT DATE: HISTORY OF PRESENT ILLNESS: The patient is a 59-year-old female with long history of schizophrenia, chronic obstructive pulmonary disease, gastroesophageal reflux, admitted to [facility] under Dr. Lindsey's service. The patient denies any chest pain, shortness of breath, nausea, vomiting, fever or chills. PAST MEDICAL HISTORY: Significant for COPD, gastroesophageal reflux, schizophrenia. PAST SURGICAL HISTORY: No recent surgery. ALLERGIES: None. MEDICATIONS: Follow admission reconciliation. SOCIAL HISTORY: Chronic smoker. No alcohol or drug. FAMILY HISTORY: Noncontributory. REVIEW OF SYSTEMS: IMMUNO SYSTEM: No history of chronic renal disorder. CARDIOVASCULAR SYSTEM: No coronary artery disease. ENDOCRINE SYSTEM: No diabetes or thyroid problem. GASTROINTESTINAL SYSTEM: She has gastroesophageal reflux. NEUROLOGICAL SYSTEM: No seizure disorder. SKELETOMUSCULAR SYSTEM: No muscular dystrophy. HEMATOLOGICAL SYSTEM: No bleeding tendencies. RESPIRATORY SYSTEM: She has history of chronic obstructive pulmonary disease. GENITOURINARY: No dysuria or hematuria. PHYSICAL EXAMINATION: GENERAL: She is awake, alert, oriented. VITAL SIGNS: Temperature 97.1, heart rate 50, blood pressure 99/58. HEENT: Normocephalic. Pupils are reacting equally to light and accommodation. Sclerae clear. NECK: Supple. Negative for lymphadenopathy, JVD or bruit. CHEST: Bilaterally normal. No rhonchi or wheezing. HEART: S1, S2 normal. No gallop rhythm. ABDOMEN: Soft, bowel sounds positive. EXTREMITIES: No edema. NEUROLOGIC: She is awake, alert, oriented. No focal muscle deficits. Cranial nerves 2-12 is intact. Cranial nerve 1: The patient is able to smell different odor. Cranial nerve 2: The patient is able to read printed page. Cranial nerve 3: The patient is able to move eyeball upward and outward. Cranial nerve 4: The patient is able to move eyeball inward and downward. Cranial nerve 5: The patient able to clench teeth, has normal sensation to forehead. Cranial nerve 6: The patient is able to move eyeball lateral on both sides. Cranial nerve 7: The patient is able to move eyebrow upwards on both sides. Cranial nerve 8: The patient able to hear finger rubs on both sides. Cranial nerve 9: The patient has a normal gag reflex. Cranial nerve 10: The patient able to move soft palate upward on each side. Cranial nerve 11: The patient able to shrug shoulder on both sides. Cranial nerve 12: The patient able to stick tongue straight. Motor system gait stable. Romberg test is normal. Muscle tone is normal. Deep tendon reflexes within normal. Sensory normal. ASSESSMENT: 1. Chronic obstructive pulmonary disease. 2. Gastroesophageal reflux. 3. Schizophrenia. PLAN: The patient in the hospital under Dr. Lindsey's service. Medical problems addressed during hospitalization is schizophrenia. Medical problem addressed at discharge are COPD and gastroesophageal reflux. The patient is medically stable for activity. Thank you Dr. Lindsey for asking me to see your patient. The patient will follow up with primary physician upon discharge. The patient is a full code. JOB# [id number]
[2019-07-20] MEDS: OLANZapine 10 mg Oral Disintegrating Tab PO SCH (21:17)
[2019-07-21] MEDS: Multivitamin Tab PO SCH (08:23)
--- NOTE | 2019-07-21 10:06 | Progress Notes ---
DATE: 07/21/2019 SUBJECTIVE: Chart was reviewed and the patient interviewed. Also discussed the patient's condition with the staff and reviewed records and labs. The patient is still anxious and she is still restless. The patient also still having mood swings and she still needs redirections. The patient also is still depressed and restless and she has continued to ask about her discharge plans, but still unable to come up with any safe plan. She also still needs redirections at times. ASSESSMENT: The patient is not suicidal or homicidal. TREATMENT PLAN: We will continue to monitor behavior and condition closely. Also, we will continue adjusting psychotropic medications and work on behavior. JOB# [id number]
[2019-07-21] MEDS: OLANZapine 10 mg Oral Disintegrating Tab PO SCH (21:26)
--- NOTE | 2019-07-21 22:06 | Internal Medicine Prog Note ---
Internal Medicine Subjective - Subjective Service Date: 07/21/19 Patient seen and examined:: without staff (SHE FEELS WELL) Patient is:: awake, verbal, arousable, in bed, talking, confused Per staff patient has:: no adverse event Internal Medicine Objective - Physical Exam Vitals and I&O: Vital Signs Temp 97.6 F 07/21/19 20:33 Pulse 84 07/21/19 20:33 Resp 20 07/21/19 20:33 BP 117/68 07/21/19 20:33 Pulse Ox 97 07/21/19 20:33 Intake & Output 07/21/19 07/21/19 07/22/19 06:59 18:59 06:59 Intake Total 240 1000 240 Balance 240 1000 240 Intake: Oral 240 1000 240 Other: # Voids 2 4 1 # Bowel Movements 0 1 Active Medications: Current Medications Acetaminophen (Tylenol) 650 mg PO Q4HR PRN PRN Reason: Mild Pain / Temp above 100 Stop: 09/18/19 14:48 Al Hydrox/Mg Hydrox/Simethicone (Maalox) 30 ml PO Q4HR PRN PRN Reason: GI DISTRESS Stop: 09/18/19 14:48 Albuterol Sulfate (Albuterol 2.5mg/3ml Neb Ud) 2.5 mg HHN Q2HRT PRN PRN Reason: Shortness of Breath or Wheeze Stop: 09/18/19 14:48 Docusate Sodium (Colace) 100 mg PO BID ASH Stop: 09/18/19 16:59 Last Admin: 07/21/19 16:32 Dose: 100 mg Lorazepam (Ativan) 0.5 mg PO Q4HR PRN; Protocol PRN Reason: Anxiety/Agitation Stop: 08/18/19 05:32 Magnesium Hydroxide (Milk Of Magnesia) 30 ml PO HS PRN PRN Reason: Constipation Magnesium Hydroxide (Milk Of Magnesia) 30 ml PO DAILY PRN PRN Reason: Constipation Stop: 09/18/19 14:48 Multivitamins/Vitamin C (Theragran) 1 tab PO DAILY ASH Stop: 09/19/19 08:59 Last Admin: 07/21/19 08:23 Dose: 1 tab Olanzapine (Zyprexa Zydis) 10 mg PO HS ASH; Protocol Stop: 09/17/19 20:59 Last Admin: 07/21/19 21:26 Dose: 10 mg Zolpidem Tartrate (Ambien) 5 mg PO HS PRN PRN Reason: Insomnia Stop: 09/17/19 07:29 General: alert, demented HEENT: NC/AT, PERRLA, EOMI, anicteric sclerae, throat clear Neck: Supple, No JVD, No thyromegaly, +2 carotid pulse wo bruit, No LAD Lungs: CTAB Cardiovascular: RRR, Normal S1, Normal S2, without murmur Abdomen: soft, non-tender, non-distended Extremities: clear Neurological: no change, gait stable Internal Medicine Assmt/Plan - Assessment Assessment: 1.COPD. 2.ALBERT. 3.DJD. 4.SCHIZOPHRENIA - Plan Plan: CONTINUE O0N CURRENT MEDICATION AND DIET Nutritional Asmnt/Malnutr-PDOC - Dietary Evaluation Malnutrition Findings (Please click <Entered> for more info): Nutritional Asmnt/Malnutrition Start: 07/20/19 12: 08 Text: Status: Complete Freq: Protocol: Document 07/20/19 12:08 [place] (Rec: 07/20/19 12:11 [place] [email or web address]) Nutritional Asmnt/Malnutrition Patient General Information Nutritional Screening High Risk Diagnosis Psychosis Pertinent Medical Hx/Surgical Hx COPD, GERD, DJD, bipolar disorder Subjective Information Pt is a 59-year-old female admitted on 07/18 d/t increased delusion and agitation. Pt is eating an estimated 83% of meals (x1 day ) Per Meal/Nutrition Activity Record. Dietary is currently providing an estimated 1303 kcals and 58 gm Pro, per Pt PO intake this is providing an estimated 1081 kcals and 48gm Pro to meet 83% kcal and 90% Pro needs. Recommend Ensure Enlive TID to help promote wt gain and to meet nutritional needs. Spoke to pt nurse Karen and recommended to amend the current restricted diet order to regular chopped as pt has no hx of endocrine disorders ( completed). Anthropometrics HT: 51 WT: 97 LB (44.09 kg) BMI: 18.32 (Underweight) GI/ Skin Integrity GI: WNL, Soft, Non-tender BM: Not Noted I/O: 1140/Not Noted Skin: WNL, Dryness Abhinav: 22 Diet Order: Regular, Chopped Estimated Energy Needs: ( Geriatric, CBW) 6760-6788 kcals (30-35 kcals/ kg) 52-66g Pro (1.2-1.5 g/kg) 1757-9129 ml (30-35 ml/kg) Current Diet Order/ Nutrition Support Regular, Chopped Pertinent Medications Maalox (PRN), Colace, MOM (PRN ), Theragran Pertinent Labs 07/18: Glucose 100, Alk phos 40, GFR 64 Nutritional Hx/Data Height 1.55 m Height (Calculated Centimeters) 154.9 Current Weight (lbs) 43.998 kg Weight (Calculated Kilograms) 44.0 Weight (Calculated Grams) 17256.5 [place] Body Weight 105 % [place] Body Weight 92 Body Mass Index (BMI) 18.3 Weight Status Underweight GI Symptoms GI Symptoms None Last BM Not Noted Skin Integrity/Comment: Skin: WNL, Dryness Abhinav: 22 Current %PO Good (75-100%) Estimated Nutritional Goals BEE in Kcals: Using Current wt Calories/Kcals/Kg 30-35 Kcals Calculated 8767-9980 Protein: Using Current wt Protein g/k.2-1.5 Protein Calculated 52-66 Fluid: ml 9367-1847 ml (30-35 ml/kg) Nutritional Problem 1. Problem Problem Underweight Etiology r/t consistent energy underconsumption Signs/Symptoms: aeb BMI>18.5 (18.32) Malnutrition Related to Morbid Obesity Malnutrition related to morbid obesity No Intervention/Recommendation Comments 1. Recommend regular chopped diet as tolerated (completed). 2. Recommend Ensure Enlive TID to promote wt gain (completed ) Expected Outcomes/Goals Expected Outcomes/Goals 1. PO intake to meet 75% of estimated nutritional needs. 2. Monitor PO intake, wt, nutrition related labs to trend WNL, and skin integrity. 3. F/U as low risk in 7-10 days, 07/26-07/29
[2019-07-22] MEDS: Multivitamin Tab PO SCH (08:45)
--- NOTE | 2019-07-22 16:50 | General Progress Note ---
Subjective - Review of Systems Service Date: 07/22/19 Subjective: resting comfortably no distress Objective - Physical Exam Vitals and I&O: Vital Signs Temp 98.4 F 07/22/19 15:02 Pulse 74 07/22/19 15:02 Resp 18 07/22/19 15:02 BP 94/54 07/22/19 15:02 Pulse Ox 97 07/22/19 15:02 Intake & Output 07/21/19 07/22/19 07/22/19 18:59 06:59 18:59 Intake Total 1000 480 Balance 1000 480 Intake: Oral 1000 480 Other: # Voids 4 1 # Bowel Movements 1 Active Medications: Current Medications Acetaminophen (Tylenol) 650 mg PO Q4HR PRN PRN Reason: Mild Pain / Temp above 100 Stop: 09/18/19 14:48 Al Hydrox/Mg Hydrox/Simethicone (Maalox) 30 ml PO Q4HR PRN PRN Reason: GI DISTRESS Stop: 09/18/19 14:48 Albuterol Sulfate (Albuterol 2.5mg/3ml Neb Ud) 2.5 mg HHN Q2HRT PRN PRN Reason: Shortness of Breath or Wheeze Stop: 09/18/19 14:48 Docusate Sodium (Colace) 100 mg PO BID ASH Stop: 09/18/19 16:59 Last Admin: 07/22/19 08:45 Dose: 100 mg Lorazepam (Ativan) 0.5 mg PO Q4HR PRN; Protocol PRN Reason: Anxiety/Agitation Stop: 08/18/19 05:32 Magnesium Hydroxide (Milk Of Magnesia) 30 ml PO HS PRN PRN Reason: Constipation Magnesium Hydroxide (Milk Of Magnesia) 30 ml PO DAILY PRN PRN Reason: Constipation Stop: 09/18/19 14:48 Multivitamins/Vitamin C (Theragran) 1 tab PO DAILY ASH Stop: 09/19/19 08:59 Last Admin: 07/22/19 08:45 Dose: 1 tab Olanzapine (Zyprexa Zydis) 10 mg PO HS ASH; Protocol Stop: 09/17/19 20:59 Last Admin: 07/21/19 21:26 Dose: 10 mg Zolpidem Tartrate (Ambien) 5 mg PO HS PRN PRN Reason: Insomnia Stop: 09/17/19 07:29 General: No acute distress HEENT: Atraumatic Neck: Supple, JVD Cardiovascular: Regular rate, Normal S1, Normal S2 Lungs: Clear to auscultation Abdomen: Bowel sounds, Soft Assessment/Plan - Assessment Assessment: 1.COPD. 2.ALBERT. 3.DJD. 4.SCHIZOPHRENIA - Plan Plan: continue current treatment Nutritional Asmnt/Malnutr-PDOC - Dietary Evaluation Malnutrition Findings (Please click <Entered> for more info): Nutritional Asmnt/Malnutrition Start: 07/20/19 12: 08 Text: Status: Complete Freq: Protocol: Document 07/20/19 12:08 LANLUISBRANDI (Rec: 07/20/19 12:11 LANLUISBRANDI [email or web address]) Nutritional Asmnt/Malnutrition Patient General Information Nutritional Screening High Risk Diagnosis Psychosis Pertinent Medical Hx/Surgical Hx COPD, GERD, DJD, bipolar disorder Subjective Information Pt is a 59-year-old female admitted on 07/18 d/t increased delusion and agitation. Pt is eating an estimated 83% of meals (x1 day ) Per Meal/Nutrition Activity Record. Dietary is currently providing an estimated 1303 kcals and 58 gm Pro, per Pt PO intake this is providing an estimated 1081 kcals and 48gm Pro to meet 83% kcal and 90% Pro needs. Recommend Ensure Enlive TID to help promote wt gain and to meet nutritional needs. Spoke to pt nurse Karen and recommended to amend the current restricted diet order to regular chopped as pt has no hx of endocrine disorders ( completed). Anthropometrics HT: 51 WT: 97 LB (44.09 kg) BMI: 18.32 (Underweight) GI/ Skin Integrity GI: WNL, Soft, Non-tender BM: Not Noted I/O: 1140/Not Noted Skin: WNL, Dryness Abhinav: 22 Diet Order: Regular, Chopped Estimated Energy Needs: ( Geriatric, CBW) 3476-5448 kcals (30-35 kcals/ kg) 52-66g Pro (1.2-1.5 g/kg) 9690-8351 ml (30-35 ml/kg) Current Diet Order/ Nutrition Support Regular, Chopped Pertinent Medications Maalox (PRN), Colace, MOM (PRN ), Theragran Pertinent Labs 07/18: Glucose 100, Alk phos 40, GFR 64 Nutritional Hx/Data Height 1.55 m Height (Calculated Centimeters) 154.9 Current Weight (lbs) 43.998 kg Weight (Calculated Kilograms) 44.0 Weight (Calculated Grams) 67920.5 [place] Body Weight 105 % [place] Body Weight 92 Body Mass Index (BMI) 18.3 Weight Status Underweight GI Symptoms GI Symptoms None Last BM Not Noted Skin Integrity/Comment: Skin: WNL, Dryness Abhinav: 22 Current %PO Good (75-100%) Estimated Nutritional Goals BEE in Kcals: Using Current wt Calories/Kcals/Kg 30-35 Kcals Calculated 3400-7532 Protein: Using Current wt Protein g/k.2-1.5 Protein Calculated 52-66 Fluid: ml 4934-3856 ml (30-35 ml/kg) Nutritional Problem 1. Problem Problem Underweight Etiology r/t consistent energy underconsumption Signs/Symptoms: aeb BMI>18.5 (18.32) Malnutrition Related to Morbid Obesity Malnutrition related to morbid obesity No Intervention/Recommendation Comments 1. Recommend regular chopped diet as tolerated (completed). 2. Recommend Ensure Enlive TID to promote wt gain (completed ) Expected Outcomes/Goals Expected Outcomes/Goals 1. PO intake to meet 75% of estimated nutritional needs. 2. Monitor PO intake, wt, nutrition related labs to trend WNL, and skin integrity. 3. F/U as low risk in 7-10 days, 07/26-07/29
--- NOTE | 2019-07-22 17:59 | Progress Notes ---
DATE: 07/22/2019 Covering for Peyton Lindsey M.D. SUBJECTIVE: The patient was interviewed. The case was discussed with staff, the chart and records were reviewed. Per the staff, the patient has been having anxiety and mood swings episodes. The patient also has no plan for self-care. The patient was evaluated this afternoon at bedside. The patient is paranoid, states that people are taking her money. She gets angry about this. Unable to redirect her to a different topic in the conversation. She continued to ramble about money. She reports that she is angry at everybody when she otherwise is not able to engage any further in the interview. MENTAL STATUS EXAMINATION: The patient is an elderly female in bed. She is with anxiety and restlessness. The patient has angry mood, constricted affect. Her thought process is loose at this time. Unable to assess for any suicidal or homicidal thoughts due to her poor cooperation, but the patient is internally preoccupied. She is paranoid that people are stealing her money and her item. She is alert and oriented to person. She also understands she is in the hospital. Her insight, judgment and impulse control are quite poor at this time. ASSESSMENT: This is a 59-year-old female, admitted to [facility] since 07/19/2019 with a history of schizophrenia due to increasing delusions and increasing agitation related to her delusions. The patient at this time continues with paranoid delusions that people are stealing her money. She gets angry and upset about this. She is difficult to redirect. She has rambling and disorganized speech and behavior and she has no plan for self-care. PLAN: We will continue the patient's acute hospitalization. We will continue medications as prescribed. We will encourage the patient to verbalize the needs and participate in group and milieu therapy. JOB# [id number]
[2019-07-22] MEDS: OLANZapine 10 mg Oral Disintegrating Tab PO SCH (21:05)
[2019-07-23] MEDS: Multivitamin Tab PO SCH (08:31)
--- NOTE | 2019-07-23 16:51 | Progress Notes ---
DATE: 07/23/2019 Covering for Peyton Lindsey M.D. SUBJECTIVE: The patient is interviewed. The case was discussed with staff. Chart and records were reviewed. Per the staff, the patient has been depressed, quiet, but much more cooperative and friendly. The patient has been more medication compliant. She has been coming out of her room more. She is participating in activities today. She overall remains somewhat paranoid of others thinking that people are taking her things, but this seems to be improving and the patient seems to be less isolative today. In addition, the patient continues with mood swings, but less anger outbursts that she appears to be tolerating her medications well and no side effects have been noted. MENTAL STATUS EXAMINATION: The patient is an elderly female sitting in the activities room. She appears to be somewhat anxious. Her mood continues to be labile. Speech is with an irritable tone. She is reluctant to discuss any suicidal or homicidal thoughts, but the patient appears to be internally preoccupied; however, overall improving in the sense, also somewhat paranoid, but also improving. She is alert and oriented to person and place. Her insight, judgment and impulse control appear to be quite poor at this time. ASSESSMENT: A 59-year-old female admitted to [facility] since 07/19/2019 with a history of schizophrenia due to increased delusions, increased agitation related to her delusions. The patient at this time continues with paranoid delusions, but they seem to be improving as the patient overall is less withdrawn, attending activities, overall she spends most of the day in her room, appears to have mood swings and anger episodes, but overall less outbursts and less agitation. PLAN: We will continue the patient's acute hospitalization. We will continue medications as prescribed. We will encourage the patient to verbalize her needs and to continue to participate in group and milieu therapy. JOB# [id number]
--- NOTE | 2019-07-23 20:53 | General Progress Note ---
Subjective - Review of Systems Service Date: 07/23/19 Subjective: resting comfortably no distress Objective - Physical Exam Vitals and I&O: Vital Signs Temp 97.9 F 07/23/19 20:21 Pulse 74 07/23/19 20:21 Resp 19 07/23/19 20:21 BP 115/73 07/23/19 20:21 Pulse Ox 96 07/23/19 20:21 Intake & Output 07/23/19 07/23/19 07/24/19 06:59 18:59 06:59 Intake Total 480 1200 240 Balance 480 1200 240 Intake: Oral 480 1200 240 Other: # Voids 1 4 1 # Bowel Movements 1 Active Medications: Current Medications Acetaminophen (Tylenol) 650 mg PO Q4HR PRN PRN Reason: Mild Pain (1-3) Stop: 09/18/19 14:48 Acetaminophen (Tylenol) 650 mg PO Q4HR PRN PRN Reason: TEMP ABOVE 100 Stop: 09/21/19 10:08 Al Hydrox/Mg Hydrox/Simethicone (Maalox) 30 ml PO Q4HR PRN PRN Reason: GI DISTRESS Stop: 09/18/19 14:48 Albuterol Sulfate (Albuterol 2.5mg/3ml Neb Ud) 2.5 mg HHN Q2HRT PRN PRN Reason: Shortness of Breath or Wheeze Stop: 09/18/19 14:48 Docusate Sodium (Colace) 100 mg PO BID ASH Stop: 09/18/19 16:59 Last Admin: 07/23/19 16:06 Dose: 100 mg Lorazepam (Ativan) 0.5 mg PO Q4HR PRN; Protocol PRN Reason: Anxiety/Agitation Stop: 08/18/19 05:32 Magnesium Hydroxide (Milk Of Magnesia) 30 ml PO HS PRN PRN Reason: Constipation Magnesium Hydroxide (Milk Of Magnesia) 30 ml PO DAILY PRN PRN Reason: Constipation Stop: 09/18/19 14:48 Multivitamins/Vitamin C (Theragran) 1 tab PO DAILY ASH Stop: 09/19/19 08:59 Last Admin: 07/23/19 08:31 Dose: 1 tab Olanzapine (Zyprexa Zydis) 10 mg PO HS ASH; Protocol Stop: 09/17/19 20:59 Last Admin: 07/22/19 21:05 Dose: 10 mg Zolpidem Tartrate (Ambien) 5 mg PO HS PRN PRN Reason: Insomnia Stop: 09/17/19 07:29 General: No acute distress HEENT: Atraumatic Neck: Supple, JVD Cardiovascular: Regular rate, Normal S1, Normal S2 Lungs: Clear to auscultation Abdomen: Bowel sounds, Soft Assessment/Plan - Assessment Assessment: 1.COPD. 2.ALBERT. 3.DJD. 4.SCHIZOPHRENIA - Plan Plan: continue current treatment Nutritional Asmnt/Malnutr-PDOC - Dietary Evaluation Malnutrition Findings (Please click <Entered> for more info): Nutritional Asmnt/Malnutrition Start: 07/20/19 12: 08 Text: Status: Complete Freq: Protocol: Document 07/20/19 12:08 [place] (Rec: 07/20/19 12:11 [place] [email or web address]) Nutritional Asmnt/Malnutrition Patient General Information Nutritional Screening High Risk Diagnosis Psychosis Pertinent Medical Hx/Surgical Hx COPD, GERD, DJD, bipolar disorder Subjective Information Pt is a 59-year-old female admitted on 07/18 d/t increased delusion and agitation. Pt is eating an estimated 83% of meals (x1 day ) Per Meal/Nutrition Activity Record. Dietary is currently providing an estimated 1303 kcals and 58 gm Pro, per Pt PO intake this is providing an estimated 1081 kcals and 48gm Pro to meet 83% kcal and 90% Pro needs. Recommend Ensure Enlive TID to help promote wt gain and to meet nutritional needs. Spoke to pt nurse Karen and recommended to amend the current restricted diet order to regular chopped as pt has no hx of endocrine disorders ( completed). Anthropometrics HT: 51 WT: 97 LB (44.09 kg) BMI: 18.32 (Underweight) GI/ Skin Integrity GI: WNL, Soft, Non-tender BM: Not Noted I/O: 1140/Not Noted Skin: WNL, Dryness Abhinav: 22 Diet Order: Regular, Chopped Estimated Energy Needs: ( Geriatric, CBW) 4872-5652 kcals (30-35 kcals/ kg) 52-66g Pro (1.2-1.5 g/kg) 8613-8287 ml (30-35 ml/kg) Current Diet Order/ Nutrition Support Regular, Chopped Pertinent Medications Maalox (PRN), Colace, MOM (PRN ), Theragran Pertinent Labs 07/18: Glucose 100, Alk phos 40, GFR 64 Nutritional Hx/Data Height 1.55 m Height (Calculated Centimeters) 154.9 Current Weight (lbs) 43.998 kg Weight (Calculated Kilograms) 44.0 Weight (Calculated Grams) 94138.5 [place] Body Weight 105 % [place] Body Weight 92 Body Mass Index (BMI) 18.3 Weight Status Underweight GI Symptoms GI Symptoms None Last BM Not Noted Skin Integrity/Comment: Skin: WNL, Dryness Abhinav: 22 Current %PO Good (75-100%) Estimated Nutritional Goals BEE in Kcals: Using Current wt Calories/Kcals/Kg 30-35 Kcals Calculated 4400-6132 Protein: Using Current wt Protein g/k.2-1.5 Protein Calculated 52-66 Fluid: ml 8810-3607 ml (30-35 ml/kg) Nutritional Problem 1. Problem Problem Underweight Etiology r/t consistent energy underconsumption Signs/Symptoms: aeb BMI>18.5 (18.32) Malnutrition Related to Morbid Obesity Malnutrition related to morbid obesity No Intervention/Recommendation Comments 1. Recommend regular chopped diet as tolerated (completed). 2. Recommend Ensure Enlive TID to promote wt gain (completed ) Expected Outcomes/Goals Expected Outcomes/Goals 1. PO intake to meet 75% of estimated nutritional needs. 2. Monitor PO intake, wt, nutrition related labs to trend WNL, and skin integrity. 3. F/U as low risk in 7-10 days, 07/26-07/29
[2019-07-23] MEDS: OLANZapine 10 mg Oral Disintegrating Tab PO SCH (21:13)
[2019-07-24] MEDS: Multivitamin Tab PO SCH (08:21)
--- NOTE | 2019-07-24 14:49 | Progress Notes ---
DATE: 07/24/2019 SUBJECTIVE: Chart was reviewed and the patient interviewed. Also discussed the patient's condition with the staff and reviewed records and labs. "I want to go back to work." The patient thinks that she is doing better to the point that she is able to go back to work. She is still delusional and paranoid. She also still stays by herself most of the time with minimum interaction with others. She also seems to be preoccupied at times. She continued to insist that she does not want to go back to [facility], but at the same time, no other safe plan for her discharge. The patient's brother talked to renal case manager and he wanted her go back to the same place. I advised the patient to talk to her brother and discussed that with him. The patient's gait is steady, but slow and vital signs are stable and no new labs available for review MENTAL STATUS EXAMINATION: Anxious. Depressed. Poor eye contact. Low tone and rate of speech. Seems to be slightly suspicious and paranoid. ASSESSMENT: The patient still needs medication adjustment and also working on her delusion as well as discharge plans ESTIMATED LENGTH OF STAY: 2-4 days. REASON FOR CONTINUED HOSPITAL STAY: The patient is still psychotic and needs close monitoring as well as arrangements for discharge plans. [facility]# [id number]
--- NOTE | 2019-07-24 18:04 | Internal Medicine Prog Note ---
Internal Medicine Subjective - Subjective Service Date: 07/24/19 Patient seen and examined:: without staff (SHE IS DOPING WELL) Patient is:: awake, verbal, arousable, in bed, talking, confused Per staff patient has:: no adverse event Internal Medicine Objective - Physical Exam Vitals and I&O: Vital Signs Temp 98.1 F 07/24/19 14:12 Pulse 84 07/24/19 14:12 Resp 18 07/24/19 14:12 BP 97/77 07/24/19 14:12 Pulse Ox 96 07/24/19 14:12 Intake & Output 07/23/19 07/24/19 07/24/19 18:59 06:59 18:59 Intake Total 8949 242 2020 Balance 1830 703 2257 Intake: Oral 6220 547 0276 Other: # Voids 4 3 4 # Bowel Movements 1 0 1 Active Medications: Current Medications Acetaminophen (Tylenol) 650 mg PO Q4HR PRN PRN Reason: Mild Pain (1-3) Stop: 09/18/19 14:48 Acetaminophen (Tylenol) 650 mg PO Q4HR PRN PRN Reason: TEMP ABOVE 100 Stop: 09/21/19 10:08 Al Hydrox/Mg Hydrox/Simethicone (Maalox) 30 ml PO Q4HR PRN PRN Reason: GI DISTRESS Stop: 09/18/19 14:48 Albuterol Sulfate (Albuterol 2.5mg/3ml Neb Ud) 2.5 mg HHN Q2HRT PRN PRN Reason: Shortness of Breath or Wheeze Stop: 09/18/19 14:48 Docusate Sodium (Colace) 100 mg PO BID ASH Stop: 09/18/19 16:59 Last Admin: 07/24/19 16:32 Dose: 100 mg Lorazepam (Ativan) 0.5 mg PO Q4HR PRN; Protocol PRN Reason: Anxiety/Agitation Stop: 08/18/19 05:32 Magnesium Hydroxide (Milk Of Magnesia) 30 ml PO HS PRN PRN Reason: Constipation Magnesium Hydroxide (Milk Of Magnesia) 30 ml PO DAILY PRN PRN Reason: Constipation Stop: 09/18/19 14:48 Multivitamins/Vitamin C (Theragran) 1 tab PO DAILY ASH Stop: 09/19/19 08:59 Last Admin: 07/24/19 08:21 Dose: 1 tab Olanzapine (Zyprexa Zydis) 10 mg PO HS ASH; Protocol Stop: 09/17/19 20:59 Last Admin: 07/23/19 21:13 Dose: 10 mg Zolpidem Tartrate (Ambien) 5 mg PO HS PRN PRN Reason: Insomnia Stop: 09/17/19 07:29 Last Admin: 07/23/19 22:25 Dose: 5 mg General: alert, demented HEENT: NC/AT, PERRLA, EOMI, anicteric sclerae, throat clear Neck: Supple, No JVD, No thyromegaly, +2 carotid pulse wo bruit, No LAD Lungs: CTAB Cardiovascular: RRR, Normal S1, Normal S2, without murmur Abdomen: soft, non-tender, non-distended Extremities: clear Neurological: no change, gait stable Internal Medicine Assmt/Plan - Assessment Assessment: 1.COPD. 2.ALBERT. 3.DJD. 4.SCHIZOPHRENIA - Plan Plan: CONTINUE O0N CURRENT MEDICATION AND DIET Nutritional Asmnt/Malnutr-PDOC - Dietary Evaluation Malnutrition Findings (Please click <Entered> for more info): Nutritional Asmnt/Malnutrition Start: 07/20/19 12: 08 Text: Status: Complete Freq: Protocol: Document 07/20/19 12:08 [place] (Rec: 07/20/19 12:11 [place] [email or web address]) Nutritional Asmnt/Malnutrition Patient General Information Nutritional Screening High Risk Diagnosis Psychosis Pertinent Medical Hx/Surgical Hx COPD, GERD, DJD, bipolar disorder Subjective Information Pt is a 59-year-old female admitted on 07/18 d/t increased delusion and agitation. Pt is eating an estimated 83% of meals (x1 day ) Per Meal/Nutrition Activity Record. Dietary is currently providing an estimated 1303 kcals and 58 gm Pro, per Pt PO intake this is providing an estimated 1081 kcals and 48gm Pro to meet 83% kcal and 90% Pro needs. Recommend Ensure Enlive TID to help promote wt gain and to meet nutritional needs. Spoke to pt nurse Karen and recommended to amend the current restricted diet order to regular chopped as pt has no hx of endocrine disorders ( completed). Anthropometrics HT: 51 WT: 97 LB (44.09 kg) BMI: 18.32 (Underweight) GI/ Skin Integrity GI: WNL, Soft, Non-tender BM: Not Noted I/O: 1140/Not Noted Skin: WNL, Dryness Abhinav: 22 Diet Order: Regular, Chopped Estimated Energy Needs: ( Geriatric, CBW) 9464-1588 kcals (30-35 kcals/ kg) 52-66g Pro (1.2-1.5 g/kg) 8118-2442 ml (30-35 ml/kg) Current Diet Order/ Nutrition Support Regular, Chopped Pertinent Medications Maalox (PRN), Colace, MOM (PRN ), Theragran Pertinent Labs 07/18: Glucose 100, Alk phos 40, GFR 64 Nutritional Hx/Data Height 1.55 m Height (Calculated Centimeters) 154.9 Current Weight (lbs) 43.998 kg Weight (Calculated Kilograms) 44.0 Weight (Calculated Grams) 23109.5 [place] Body Weight 105 % [place] Body Weight 92 Body Mass Index (BMI) 18.3 Weight Status Underweight GI Symptoms GI Symptoms None Last BM Not Noted Skin Integrity/Comment: Skin: WNL, Dryness Abhinav: 22 Current %PO Good (75-100%) Estimated Nutritional Goals BEE in Kcals: Using Current wt Calories/Kcals/Kg 30-35 Kcals Calculated 5403-6083 Protein: Using Current wt Protein g/k.2-1.5 Protein Calculated 52-66 Fluid: ml 3891-9182 ml (30-35 ml/kg) Nutritional Problem 1. Problem Problem Underweight Etiology r/t consistent energy underconsumption Signs/Symptoms: aeb BMI>18.5 (18.32) Malnutrition Related to Morbid Obesity Malnutrition related to morbid obesity No Intervention/Recommendation Comments 1. Recommend regular chopped diet as tolerated (completed). 2. Recommend Ensure Enlive TID to promote wt gain (completed ) Expected Outcomes/Goals Expected Outcomes/Goals 1. PO intake to meet 75% of estimated nutritional needs. 2. Monitor PO intake, wt, nutrition related labs to trend WNL, and skin integrity. 3. F/U as low risk in 7-10 days, 07/26-07/29
[2019-07-24] MEDS: OLANZapine 10 mg Oral Disintegrating Tab PO SCH (20:37)
--- NOTE | 2019-07-25 06:49 | Progress Notes ---
DATE: 07/25/2019 SUBJECTIVE: Chart was reviewed and the patient interviewed. Also discussed the patient's condition with the staff and reviewed records and labs. The patient is still delusional and is still guarded and withdrawn. The patient also continued to talk about her desire to go to live in other facility, but at the same time, the patient's brother wanted to go back to [facility]. She also is withdrawn and she still had minimum interaction with others. The patient also still seems to be suspicious and seems to be paranoid. Otherwise, no side effects of medications. The patient's gait is steady and vital signs are stable and no new labs available for review. Mental Status Examination: Unkempt. Anxious. Poor eye contact. Low tone and rate of speech. Thought processes are circumstantial, but no flight of ideas. ASSESSMENT: The patient is still paranoid and needs close monitoring. TREATMENT PLAN: Continue to monitor behavior and condition closely. Also, continue adjusting psychotropic medications and work on discharge plans and placement issue. ESTIMATED LENGTH OF STAY: 1-3 days. REASON TO CONTINUE HOSPITAL STAY: The patient is still depressed and forgetful and needs close monitoring. JOB# [id number]
[2019-07-25] MEDS: Multivitamin Tab PO SCH (08:23)
--- NOTE | 2019-07-25 19:20 | Internal Medicine Prog Note ---
Internal Medicine Subjective - Subjective Service Date: 07/25/19 Patient seen and examined:: without staff (SHE IS DOING WELL) Patient is:: awake, verbal, arousable, in bed, talking, confused Per staff patient has:: no adverse event Internal Medicine Objective - Physical Exam Vitals and I&O: Vital Signs Temp 98.8 F 07/25/19 16:18 Pulse 74 07/25/19 16:18 Resp 20 07/25/19 16:18 BP 100/67 07/25/19 16:18 Pulse Ox 97 07/25/19 16:18 Intake & Output 07/25/19 07/25/19 07/26/19 06:59 18:59 06:59 Other: # Voids 3 3 # Bowel Movements 0 1 Active Medications: Current Medications Acetaminophen (Tylenol) 650 mg PO Q4HR PRN PRN Reason: Mild Pain (1-3) Stop: 09/18/19 14:48 Acetaminophen (Tylenol) 650 mg PO Q4HR PRN PRN Reason: TEMP ABOVE 100 Stop: 09/21/19 10:08 Al Hydrox/Mg Hydrox/Simethicone (Maalox) 30 ml PO Q4HR PRN PRN Reason: GI DISTRESS Stop: 09/18/19 14:48 Albuterol Sulfate (Albuterol 2.5mg/3ml Neb Ud) 2.5 mg HHN Q2HRT PRN PRN Reason: Shortness of Breath or Wheeze Stop: 09/18/19 14:48 Docusate Sodium (Colace) 100 mg PO BID ASH Stop: 09/18/19 16:59 Last Admin: 07/25/19 17:14 Dose: 100 mg Lorazepam (Ativan) 0.5 mg PO Q4HR PRN; Protocol PRN Reason: Anxiety/Agitation Stop: 08/18/19 05:32 Magnesium Hydroxide (Milk Of Magnesia) 30 ml PO HS PRN PRN Reason: Constipation Magnesium Hydroxide (Milk Of Magnesia) 30 ml PO DAILY PRN PRN Reason: Constipation Stop: 09/18/19 14:48 Multivitamins/Vitamin C (Theragran) 1 tab PO DAILY ASH Stop: 09/19/19 08:59 Last Admin: 07/25/19 08:23 Dose: 1 tab Olanzapine (Zyprexa Zydis) 10 mg PO HS ASH; Protocol Stop: 09/17/19 20:59 Last Admin: 07/24/19 20:37 Dose: 10 mg Zolpidem Tartrate (Ambien) 5 mg PO HS PRN PRN Reason: Insomnia Stop: 09/17/19 07:29 Last Admin: 07/24/19 20:37 Dose: 5 mg General: alert, demented HEENT: NC/AT, PERRLA, EOMI, anicteric sclerae, throat clear Neck: Supple, No JVD, No thyromegaly, +2 carotid pulse wo bruit, No LAD Lungs: CTAB Cardiovascular: RRR, Normal S1, Normal S2, without murmur Abdomen: soft, non-tender, non-distended Extremities: clear Neurological: no change, gait stable Internal Medicine Assmt/Plan - Assessment Assessment: 1.COPD. 2.ALBERT. 3.DJD. 4.SCHIZOPHRENIA - Plan Plan: CONTINUE O0N CURRENT MEDICATION AND DIET Nutritional Asmnt/Malnutr-PDOC - Dietary Evaluation Malnutrition Findings (Please click <Entered> for more info): Nutritional Asmnt/Malnutrition Start: 07/20/19 12: 08 Text: Status: Complete Freq: Protocol: Document 07/20/19 12:08 [place] (Rec: 07/20/19 12:11 [place] [email or web address]) Nutritional Asmnt/Malnutrition Patient General Information Nutritional Screening High Risk Diagnosis Psychosis Pertinent Medical Hx/Surgical Hx COPD, GERD, DJD, bipolar disorder Subjective Information Pt is a 59-year-old female admitted on 07/18 d/t increased delusion and agitation. Pt is eating an estimated 83% of meals (x1 day ) Per Meal/Nutrition Activity Record. Dietary is currently providing an estimated 1303 kcals and 58 gm Pro, per Pt PO intake this is providing an estimated 1081 kcals and 48gm Pro to meet 83% kcal and 90% Pro needs. Recommend Ensure Enlive TID to help promote wt gain and to meet nutritional needs. Spoke to pt nurse Karen and recommended to amend the current restricted diet order to regular chopped as pt has no hx of endocrine disorders ( completed). Anthropometrics HT: 51 WT: 97 LB (44.09 kg) BMI: 18.32 (Underweight) GI/ Skin Integrity GI: WNL, Soft, Non-tender BM: Not Noted I/O: 1140/Not Noted Skin: WNL, Dryness Abhinav: 22 Diet Order: Regular, Chopped Estimated Energy Needs: ( Geriatric, CBW) 0586-2079 kcals (30-35 kcals/ kg) 52-66g Pro (1.2-1.5 g/kg) 5743-9686 ml (30-35 ml/kg) Current Diet Order/ Nutrition Support Regular, Chopped Pertinent Medications Maalox (PRN), Colace, MOM (PRN ), Theragran Pertinent Labs 07/18: Glucose 100, Alk phos 40, GFR 64 Nutritional Hx/Data Height 1.55 m Height (Calculated Centimeters) 154.9 Current Weight (lbs) 43.998 kg Weight (Calculated Kilograms) 44.0 Weight (Calculated Grams) 18044.5 [place] Body Weight 105 % [place] Body Weight 92 Body Mass Index (BMI) 18.3 Weight Status Underweight GI Symptoms GI Symptoms None Last BM Not Noted Skin Integrity/Comment: Skin: WNL, Dryness Abhinav: 22 Current %PO Good (75-100%) Estimated Nutritional Goals BEE in Kcals: Using Current wt Calories/Kcals/Kg 30-35 Kcals Calculated 8611-1172 Protein: Using Current wt Protein g/k.2-1.5 Protein Calculated 52-66 Fluid: ml 7770-3979 ml (30-35 ml/kg) Nutritional Problem 1. Problem Problem Underweight Etiology r/t consistent energy underconsumption Signs/Symptoms: aeb BMI>18.5 (18.32) Malnutrition Related to Morbid Obesity Malnutrition related to morbid obesity No Intervention/Recommendation Comments 1. Recommend regular chopped diet as tolerated (completed). 2. Recommend Ensure Enlive TID to promote wt gain (completed ) Expected Outcomes/Goals Expected Outcomes/Goals 1. PO intake to meet 75% of estimated nutritional needs. 2. Monitor PO intake, wt, nutrition related labs to trend WNL, and skin integrity. 3. F/U as low risk in 7-10 days, 07/26-07/29
[2019-07-25] MEDS: OLANZapine 10 mg Oral Disintegrating Tab PO SCH (21:20)
--- NOTE | 2019-07-26 07:56 | Progress Notes ---
DATE: 07/26/2019 PSYCHIATRIC PROGRESS NOTE SUBJECTIVE: Chart was reviewed and the patient interviewed. Also discussed the patient's condition with the staff and reviewed records and labs. The patient is still severely anxious. The patient has been pacing up and down the unit in irritable mood plans. Also at other times she tends to isolate herself and stays by herself in her room. The patient also is still unable to come up with a safe plan for self-care and she wants to go to "[facility]" that she does not know anything about it. She insists that she does not want to go back to [facility], but at the same time, brother and [facility] willing to take the patient back and brother wanted to go back there. The patient also is still slightly suspicious and is paranoid. The patient's gait is steady. Vital signs are stable and no new labs available for review MENTAL STATUS EXAMINATION: Unkempt. Anxious. Fair eye contact. Normal tone and rate of speech. Slightly suspicious and seems to be paranoid and preoccupied. Denies auditory or visual hallucinations and denies suicide or homicide. ASSESSMENT: The patient is still psychotic and still needs close monitoring. TREATMENT PLAN: Continue current treatment and current medications. Also, continue to work on her ineffective coping and her judgment as well as her discharge plans ESTIMATED LENGTH OF STAY: 1-3 days. REASON FOR CONTINUED HOSPITAL STAY: The patient is still psychotic and also working on discharge plans. JOB# [id number]
[2019-07-26] MEDS: Multivitamin Tab PO SCH (08:14)
--- NOTE | 2019-07-26 20:57 | Internal Medicine Prog Note ---
Internal Medicine Subjective - Subjective Service Date: 07/26/19 Patient seen and examined:: without staff (SHE FEELS GOOD) Patient is:: awake, verbal, arousable, in bed, talking, confused Per staff patient has:: no adverse event Internal Medicine Objective - Physical Exam Vitals and I&O: Vital Signs Temp 97.7 F 07/26/19 20:00 Pulse 76 07/26/19 20:00 Resp 20 07/26/19 20:00 BP 113/75 07/26/19 20:00 Pulse Ox 97 07/26/19 20:00 Intake & Output 07/26/19 07/26/19 07/27/19 06:59 18:59 06:59 Intake Total 240 1320 Balance 240 1320 Intake: Oral 240 1080 Other 240 Other: # Voids 2 4 # Bowel Movements 1 1 Active Medications: Current Medications Acetaminophen (Tylenol) 650 mg PO Q4HR PRN PRN Reason: Mild Pain (1-3) Stop: 09/18/19 14:48 Acetaminophen (Tylenol) 650 mg PO Q4HR PRN PRN Reason: TEMP ABOVE 100 Stop: 09/21/19 10:08 Al Hydrox/Mg Hydrox/Simethicone (Maalox) 30 ml PO Q4HR PRN PRN Reason: GI DISTRESS Stop: 09/18/19 14:48 Albuterol Sulfate (Albuterol 2.5mg/3ml Neb Ud) 2.5 mg HHN Q2HRT PRN PRN Reason: Shortness of Breath or Wheeze Stop: 09/18/19 14:48 Docusate Sodium (Colace) 100 mg PO BID ASH Stop: 09/18/19 16:59 Last Admin: 07/26/19 16:37 Dose: 100 mg Magnesium Hydroxide (Milk Of Magnesia) 30 ml PO HS PRN PRN Reason: Constipation Magnesium Hydroxide (Milk Of Magnesia) 30 ml PO DAILY PRN PRN Reason: Constipation Stop: 09/18/19 14:48 Multivitamins/Vitamin C (Theragran) 1 tab PO DAILY ASH Stop: 09/19/19 08:59 Last Admin: 07/26/19 08:14 Dose: 1 tab Olanzapine (Zyprexa Zydis) 10 mg PO HS [facility]; Protocol Stop: 09/17/19 20:59 Last Admin: 07/25/19 21:20 Dose: 10 mg Zolpidem Tartrate (Ambien) 5 mg PO HS PRN PRN Reason: Insomnia Stop: 09/24/19 20:51 General: alert, demented HEENT: NC/AT, PERRLA, EOMI, anicteric sclerae, throat clear Neck: Supple, No JVD, No thyromegaly, +2 carotid pulse wo bruit, No LAD Lungs: CTAB Cardiovascular: RRR, Normal S1, Normal S2, without murmur Abdomen: soft, non-tender, non-distended Extremities: clear Neurological: no change, gait stable Internal Medicine Assmt/Plan - Assessment Assessment: 1.COPD. 2.ALBERT. 3.DJD. 4.SCHIZOPHRENIA - Plan Plan: CONTINUE O0N CURRENT MEDICATION AND DIET Nutritional Asmnt/Malnutr-PDOC - Dietary Evaluation Malnutrition Findings (Please click <Entered> for more info): Nutritional Asmnt/Malnutrition Start: 07/20/19 12: 08 Text: Status: Complete Freq: Protocol: Document 07/20/19 12:08 [place] (Rec: 07/20/19 12:11 [place] [email or web address]) Nutritional Asmnt/Malnutrition Patient General Information Nutritional Screening High Risk Diagnosis Psychosis Pertinent Medical Hx/Surgical Hx COPD, GERD, DJD, bipolar disorder Subjective Information Pt is a 59-year-old female admitted on 07/18 d/t increased delusion and agitation. Pt is eating an estimated 83% of meals (x1 day ) Per Meal/Nutrition Activity Record. Dietary is currently providing an estimated 1303 kcals and 58 gm Pro, per Pt PO intake this is providing an estimated 1081 kcals and 48gm Pro to meet 83% kcal and 90% Pro needs. Recommend Ensure Enlive TID to help promote wt gain and to meet nutritional needs. Spoke to pt nurse Karen and recommended to amend the current restricted diet order to regular chopped as pt has no hx of endocrine disorders ( completed). Anthropometrics HT: 51 WT: 97 LB (44.09 kg) BMI: 18.32 (Underweight) GI/ Skin Integrity GI: WNL, Soft, Non-tender BM: Not Noted I/O: 1140/Not Noted Skin: WNL, Dryness Abhinav: 22 Diet Order: Regular, Chopped Estimated Energy Needs: ( Geriatric, CBW) 9101-8305 kcals (30-35 kcals/ kg) 52-66g Pro (1.2-1.5 g/kg) 2896-3801 ml (30-35 ml/kg) Current Diet Order/ Nutrition Support Regular, Chopped Pertinent Medications Maalox (PRN), Colace, MOM (PRN ), Theragran Pertinent Labs 07/18: Glucose 100, Alk phos 40, GFR 64 Nutritional Hx/Data Height 1.55 m Height (Calculated Centimeters) 154.9 Current Weight (lbs) 43.998 kg Weight (Calculated Kilograms) 44.0 Weight (Calculated Grams) 28107.5 [place] Body Weight 105 % [place] Body Weight 92 Body Mass Index (BMI) 18.3 Weight Status Underweight GI Symptoms GI Symptoms None Last BM Not Noted Skin Integrity/Comment: Skin: WNL, Dryness Abhinav: 22 Current %PO Good (75-100%) Estimated Nutritional Goals BEE in Kcals: Using Current wt Calories/Kcals/Kg 30-35 Kcals Calculated 1440-9099 Protein: Using Current wt Protein g/k.2-1.5 Protein Calculated 52-66 Fluid: ml 1945-9984 ml (30-35 ml/kg) Nutritional Problem 1. Problem Problem Underweight Etiology r/t consistent energy underconsumption Signs/Symptoms: aeb BMI>18.5 (18.32) Malnutrition Related to Morbid Obesity Malnutrition related to morbid obesity No Intervention/Recommendation Comments 1. Recommend regular chopped diet as tolerated (completed). 2. Recommend Ensure Enlive TID to promote wt gain (completed ) Expected Outcomes/Goals Expected Outcomes/Goals 1. PO intake to meet 75% of estimated nutritional needs. 2. Monitor PO intake, wt, nutrition related labs to trend WNL, and skin integrity. 3. F/U as low risk in 7-10 days, 07/26-07/29
[2019-07-26] MEDS: OLANZapine 10 mg Oral Disintegrating Tab PO SCH (21:15)
--- NOTE | 2019-07-27 07:35 | Progress Notes ---
DATE: 07/27/2019 SUBJECTIVE: Chart reviewed and the patient interviewed. Also, discussed the patient's condition with the staff and reviewed records and labs. The patient is still pacing up and down the unit. The patient also is still restless and is still in angry and in irritable mood. The patient also still wants to be left alone. She also is still pacing up and down the unit. She, according to staff, seems to be preoccupied and responding. Patient's gait is steady and vital signs are stable and no new labs available for review. MENTAL STATUS EXAMINATION: The patient is cooperative. Flat affect. Mood not depressed nor elated. ASSESSMENT: The patient is still considered to be gravely disabled and psychotic and needs placement. TREATMENT PLAN: We will continue monitoring her behavior. Also, continue to work on her discharge plans and on placement issue. JOB# [id number]
[2019-07-27] MEDS: Multivitamin Tab PO SCH (08:28)
--- NOTE | 2019-07-27 16:38 | Internal Medicine Prog Note ---
Internal Medicine Subjective - Subjective Service Date: 07/27/19 Patient seen and examined:: without staff (SHE IS DOING WELL) Patient is:: awake, verbal, arousable, in bed, talking, confused Per staff patient has:: no adverse event Internal Medicine Objective - Physical Exam Vitals and I&O: Vital Signs Temp 97.4 F 07/27/19 14:00 Pulse 97 07/27/19 14:00 Resp 20 07/27/19 14:00 BP 109/98 07/27/19 14:00 Pulse Ox 97 07/27/19 14:00 Intake & Output 07/26/19 07/27/19 07/27/19 18:59 06:59 18:59 Intake Total 1320 120 800 Balance 1320 120 800 Intake: Oral 1080 120 800 Other 240 Other: # Voids 4 2 # Bowel Movements 1 1 Active Medications: Current Medications Acetaminophen (Tylenol) 650 mg PO Q4HR PRN PRN Reason: Mild Pain (1-3) Stop: 09/18/19 14:48 Acetaminophen (Tylenol) 650 mg PO Q4HR PRN PRN Reason: TEMP ABOVE 100 Stop: 09/21/19 10:08 Al Hydrox/Mg Hydrox/Simethicone (Maalox) 30 ml PO Q4HR PRN PRN Reason: GI DISTRESS Stop: 09/18/19 14:48 Albuterol Sulfate (Albuterol 2.5mg/3ml Neb Ud) 2.5 mg HHN Q2HRT PRN PRN Reason: Shortness of Breath or Wheeze Stop: 09/18/19 14:48 Docusate Sodium (Colace) 100 mg PO BID ASH Stop: 09/18/19 16:59 Last Admin: 07/27/19 08:28 Dose: 100 mg Magnesium Hydroxide (Milk Of Magnesia) 30 ml PO HS PRN PRN Reason: Constipation Magnesium Hydroxide (Milk Of Magnesia) 30 ml PO DAILY PRN PRN Reason: Constipation Stop: 09/18/19 14:48 Multivitamins/Vitamin C (Theragran) 1 tab PO DAILY ASH Stop: 09/19/19 08:59 Last Admin: 07/27/19 08:28 Dose: 1 tab Olanzapine (Zyprexa Zydis) 10 mg PO HS ASH; Protocol Stop: 09/17/19 20:59 Last Admin: 07/26/19 21:15 Dose: 10 mg Zolpidem Tartrate (Ambien) 5 mg PO HS PRN PRN Reason: Insomnia Stop: 09/24/19 20:51 Last Admin: 07/26/19 22:30 Dose: 5 mg General: alert, demented HEENT: NC/AT, PERRLA, EOMI, anicteric sclerae, throat clear Neck: Supple, No JVD, No thyromegaly, +2 carotid pulse wo bruit, No LAD Lungs: CTAB Cardiovascular: RRR, Normal S1, Normal S2, without murmur Abdomen: soft, non-tender, non-distended Extremities: clear Neurological: no change, gait stable Internal Medicine Assmt/Plan - Assessment Assessment: 1.COPD. 2.ALBERT. 3.DJD. 4.SCHIZOPHRENIA - Plan Plan: CONTINUE O0N CURRENT MEDICATION AND DIET Nutritional Asmnt/Malnutr-PDOC - Dietary Evaluation Malnutrition Findings (Please click <Entered> for more info): Nutritional Asmnt/Malnutrition Start: 07/20/19 12: 08 Text: Status: Complete Freq: Protocol: Document 07/20/19 12:08 [place] (Rec: 07/20/19 12:11 [place] [email or web address]) Nutritional Asmnt/Malnutrition Patient General Information Nutritional Screening High Risk Diagnosis Psychosis Pertinent Medical Hx/Surgical Hx COPD, GERD, DJD, bipolar disorder Subjective Information Pt is a 59-year-old female admitted on 07/18 d/t increased delusion and agitation. Pt is eating an estimated 83% of meals (x1 day ) Per Meal/Nutrition Activity Record. Dietary is currently providing an estimated 1303 kcals and 58 gm Pro, per Pt PO intake this is providing an estimated 1081 kcals and 48gm Pro to meet 83% kcal and 90% Pro needs. Recommend Ensure Enlive TID to help promote wt gain and to meet nutritional needs. Spoke to pt nurse Karen and recommended to amend the current restricted diet order to regular chopped as pt has no hx of endocrine disorders ( completed). Anthropometrics HT: 51 WT: 97 LB (44.09 kg) BMI: 18.32 (Underweight) GI/ Skin Integrity GI: WNL, Soft, Non-tender BM: Not Noted I/O: 1140/Not Noted Skin: WNL, Dryness Abhinav: 22 Diet Order: Regular, Chopped Estimated Energy Needs: ( Geriatric, CBW) 5133-2965 kcals (30-35 kcals/ kg) 52-66g Pro (1.2-1.5 g/kg) 3549-0835 ml (30-35 ml/kg) Current Diet Order/ Nutrition Support Regular, Chopped Pertinent Medications Maalox (PRN), Colace, MOM (PRN ), Theragran Pertinent Labs 07/18: Glucose 100, Alk phos 40, GFR 64 Nutritional Hx/Data Height 1.55 m Height (Calculated Centimeters) 154.9 Current Weight (lbs) 43.998 kg Weight (Calculated Kilograms) 44.0 Weight (Calculated Grams) 49043.5 [place] Body Weight 105 % [place] Body Weight 92 Body Mass Index (BMI) 18.3 Weight Status Underweight GI Symptoms GI Symptoms None Last BM Not Noted Skin Integrity/Comment: Skin: WNL, Dryness Abhinav: 22 Current %PO Good (75-100%) Estimated Nutritional Goals BEE in Kcals: Using Current wt Calories/Kcals/Kg 30-35 Kcals Calculated 4844-4477 Protein: Using Current wt Protein g/k.2-1.5 Protein Calculated 52-66 Fluid: ml 1100-7130 ml (30-35 ml/kg) Nutritional Problem 1. Problem Problem Underweight Etiology r/t consistent energy underconsumption Signs/Symptoms: aeb BMI>18.5 (18.32) Malnutrition Related to Morbid Obesity Malnutrition related to morbid obesity No Intervention/Recommendation Comments 1. Recommend regular chopped diet as tolerated (completed). 2. Recommend Ensure Enlive TID to promote wt gain (completed ) Expected Outcomes/Goals Expected Outcomes/Goals 1. PO intake to meet 75% of estimated nutritional needs. 2. Monitor PO intake, wt, nutrition related labs to trend WNL, and skin integrity. 3. F/U as low risk in 7-10 days, 07/26-07/29
[2019-07-27] MEDS: OLANZapine 10 mg Oral Disintegrating Tab PO SCH (21:37)
[2019-07-28] MEDS: Multivitamin Tab PO SCH (08:44)
--- NOTE | 2019-07-28 09:50 | Discharge Summary ---
DATE OF DISCHARGE: 07/28/2019 AGE: 59. SEX: Female. PHYSICIAN: Dr. Lindsey. FINAL DIAGNOSIS: PRIMARY DIAGNOSIS: Schizophrenic disorder, unspecified. MEDICAL DIAGNOSES: Chronic obstructive pulmonary disease, gastroesophageal reflux disease. REASON FOR HOSPITALIZATION: The patient was admitted to the hospital from [facility] because the patient was severely delusional and paranoid and thinking that staff were stealing her belongings and they stole her "millions." She also was not able to follow staff directions and she was getting agitated. HOSPITAL COURSE: The patient continued to be in irritable mood and agitated. The patient also was insisting that she does not want to go back to [facility]. The patient continued to take Zyprexa a dose of 10 mg at bedtime. The patient was compliant with taking her medications with no side effects of medications. The patient's brother did not want the patient to go to any different facility except [facility]. The patient was not able to make any same decisions. The patient was calm and she was agreeable to return to [facility] and she was not exhibiting any serious issues or behavioral problems at the time of discharge. The patient's gait is steady and vital signs are stable and no new labs available for review. AFTER DISCHARGE PLANS: The patient discharged from the hospital and went back to [facility] with plans for follow her there. EXPECTED OUTCOME AFTER DISCHARGE: Fair if the patient will continue to take her psychotropic medications and follow up with discharge plans. [facility]# [id number]
--- NOTE | 2019-07-28 17:12 | Internal Medicine Prog Note ---
Internal Medicine Subjective - Subjective Service Date: 07/28/19 Patient seen and examined:: without staff (SHE IS DOING WELL) Patient is:: awake, verbal, arousable, in bed, talking, confused Per staff patient has:: no adverse event Internal Medicine Objective - Physical Exam Vitals and I&O: Vital Signs Temp 98.8 F 07/28/19 14:00 Pulse 81 07/28/19 14:00 Resp 18 07/28/19 14:00 BP 104/54 07/28/19 14:00 Pulse Ox 97 07/28/19 14:00 Intake & Output 07/27/19 07/28/19 07/28/19 18:59 06:59 18:59 Intake Total 1050 240 Balance 1050 240 Intake: Oral 1050 240 Other: # Voids 2 # Bowel Movements 1 0 Active Medications: Current Medications Acetaminophen (Tylenol) 650 mg PO Q4HR PRN PRN Reason: Mild Pain (1-3) Stop: 09/18/19 14:48 Acetaminophen (Tylenol) 650 mg PO Q4HR PRN PRN Reason: TEMP ABOVE 100 Stop: 09/21/19 10:08 Al Hydrox/Mg Hydrox/Simethicone (Maalox) 30 ml PO Q4HR PRN PRN Reason: GI DISTRESS Stop: 09/18/19 14:48 Albuterol Sulfate (Albuterol 2.5mg/3ml Neb Ud) 2.5 mg HHN Q2HRT PRN PRN Reason: Shortness of Breath or Wheeze Stop: 09/18/19 14:48 Docusate Sodium (Colace) 100 mg PO BID ASH Stop: 09/18/19 16:59 Last Admin: 07/28/19 16:54 Dose: 100 mg Magnesium Hydroxide (Milk Of Magnesia) 30 ml PO HS PRN PRN Reason: Constipation Magnesium Hydroxide (Milk Of Magnesia) 30 ml PO DAILY PRN PRN Reason: Constipation Stop: 09/18/19 14:48 Multivitamins/Vitamin C (Theragran) 1 tab PO DAILY ASH Stop: 09/19/19 08:59 Last Admin: 07/28/19 08:44 Dose: 1 tab Olanzapine (Zyprexa Zydis) 10 mg PO HS ASH; Protocol Stop: 09/17/19 20:59 Last Admin: 07/27/19 21:37 Dose: 10 mg Zolpidem Tartrate (Ambien) 5 mg PO HS PRN PRN Reason: Insomnia Stop: 09/24/19 20:51 Last Admin: 07/27/19 21:37 Dose: 5 mg General: alert, demented HEENT: NC/AT, PERRLA, EOMI, anicteric sclerae, throat clear Neck: Supple, No JVD, No thyromegaly, +2 carotid pulse wo bruit, No LAD Lungs: CTAB Cardiovascular: RRR, Normal S1, Normal S2, without murmur Abdomen: soft, non-tender, non-distended Extremities: clear Neurological: no change, gait stable Internal Medicine Assmt/Plan - Assessment Assessment: 1.COPD. 2.ALBERT. 3.DJD. 4.SCHIZOPHRENIA - Plan Plan: CONTINUE O0N CURRENT MEDICATION AND DIET Nutritional Asmnt/Malnutr-PDOC - Dietary Evaluation Malnutrition Findings (Please click <Entered> for more info): Nutritional Asmnt/Malnutrition Start: 07/20/19 12: 08 Text: Status: Complete Freq: Protocol: Document 07/20/19 12:08 [place] (Rec: 07/20/19 12:11 [place] [email or web address]) Nutritional Asmnt/Malnutrition Patient General Information Nutritional Screening High Risk Diagnosis Psychosis Pertinent Medical Hx/Surgical Hx COPD, GERD, DJD, bipolar disorder Subjective Information Pt is a 59-year-old female admitted on 07/18 d/t increased delusion and agitation. Pt is eating an estimated 83% of meals (x1 day ) Per Meal/Nutrition Activity Record. Dietary is currently providing an estimated 1303 kcals and 58 gm Pro, per Pt PO intake this is providing an estimated 1081 kcals and 48gm Pro to meet 83% kcal and 90% Pro needs. Recommend Ensure Enlive TID to help promote wt gain and to meet nutritional needs. Spoke to pt nurse Karen and recommended to amend the current restricted diet order to regular chopped as pt has no hx of endocrine disorders ( completed). Anthropometrics HT: 51 WT: 97 LB (44.09 kg) BMI: 18.32 (Underweight) GI/ Skin Integrity GI: WNL, Soft, Non-tender BM: Not Noted I/O: 1140/Not Noted Skin: WNL, Dryness Abhinav: 22 Diet Order: Regular, Chopped Estimated Energy Needs: ( Geriatric, CBW) 2531-5580 kcals (30-35 kcals/ kg) 52-66g Pro (1.2-1.5 g/kg) 9408-9257 ml (30-35 ml/kg) Current Diet Order/ Nutrition Support Regular, Chopped Pertinent Medications Maalox (PRN), Colace, MOM (PRN ), Theragran Pertinent Labs 07/18: Glucose 100, Alk phos 40, GFR 64 Nutritional Hx/Data Height 1.55 m Height (Calculated Centimeters) 154.9 Current Weight (lbs) 43.998 kg Weight (Calculated Kilograms) 44.0 Weight (Calculated Grams) 72627.5 [place] Body Weight 105 % [place] Body Weight 92 Body Mass Index (BMI) 18.3 Weight Status Underweight GI Symptoms GI Symptoms None Last BM Not Noted Skin Integrity/Comment: Skin: WNL, Dryness Abhinav: 22 Current %PO Good (75-100%) Estimated Nutritional Goals BEE in Kcals: Using Current wt Calories/Kcals/Kg 30-35 Kcals Calculated 2514-9986 Protein: Using Current wt Protein g/k.2-1.5 Protein Calculated 52-66 Fluid: ml 2337-6260 ml (30-35 ml/kg) Nutritional Problem 1. Problem Problem Underweight Etiology r/t consistent energy underconsumption Signs/Symptoms: aeb BMI>18.5 (18.32) Malnutrition Related to Morbid Obesity Malnutrition related to morbid obesity No Intervention/Recommendation Comments 1. Recommend regular chopped diet as tolerated (completed). 2. Recommend Ensure Enlive TID to promote wt gain (completed ) Expected Outcomes/Goals Expected Outcomes/Goals 1. PO intake to meet 75% of estimated nutritional needs. 2. Monitor PO intake, wt, nutrition related labs to trend WNL, and skin integrity. 3. F/U as low risk in 7-10 days, 07/26-07/29
== END 2019-07-28 18:00 | DRG 885 ==
LOC: GERO 07-19 00:30
PROVIDERS: ADMIT Psychiatry & Neurology Psychiatry; ATTEND Psychiatry & Neurology Psychiatry
DX: F20.9 Schizophrenia, unspecified (principal); J44.9 Chronic obstructive pulmonary disease, unspecified; K21.9 Gastro-esophageal reflux disease without esophagitis; M19.90 Unspecified osteoarthritis, unspecified site; Z79.899 Other long term (current) drug therapy
CPT/HCPCS: 83036-90; Z7610